=== PATIENT | male | born 1965 ===

== ENCOUNTER → 2018-01-11 | Outpatient (CLI) | payer OTHER ==
[~2018-01-11] MED LIST: ATOR-22 PO; ATOR-26 PO; BACL10TA PO; CEPH500C2 PO; FRS/40 PO; IBUP-1050 PO; IBUP-1450 PO; IMIP1INJ5 IV; LDDP5 TD; LEVO1TAB35 IV; LVNIS40 SQ; METH10TA2 PO; NORT50CA PO; NRN300 PO; PIPE2SOL IV; POTA8CAP6 PO; ROPI0.25 PO; SULF800T23 PO; VANC500I IV
--- NOTE | 2018-01-20 10:22 | CODING QUERY NO DIAGNOSIS ---
TREATMENT RENDERED WITHOUT A DIAGNOSIS Dr. Perez, To promote full compliance with coding requirements relating to patient care, physician participation is requested in all cases of wedding planning internship uncertainty. Please assist us with providing a diagnosis/symptom for the test(s) below: A diagnosis/symptom was not documented on your Order. A valid diagnosis/symptom is required to bill all insurances. Please remember that we are unable to code a diagnosis of rule out, probable, possible, questionable, or suspected. Tests that require a diagnosis: * ID, CULTURE ISOLATE X9 DIAGNOSIS: * M.I.C. SENSITIVITY X7 DIAGNOSIS: * CULTURE, BACTERIAL, ANY SOURCE X2 DIAGNOSIS: * CULTURE, BACT., DEF; ANY SOURC X2 DIAGNOSIS: DATE OF SERVICE: 01/11/18 PLEASE PRINT FIRST AND LAST NAME OF PHYSICIAN FOR OUR REGISTRY Provider Signature: Date: Thank you Reese [facility] Information Management Once completed, please kindly fax back to [phone] For questions please call [phone]
== END | disposition home or self-care (01) ==
LOC: C.LABSPEC 17:15
PROVIDERS: ATTEND Internal Medicine Hematology
DX: Z01.89 Encounter for other specified special examinations (principal)

== ENCOUNTER → 2018-01-25 | Outpatient (CLI) | payer OTHER | END | disposition home or self-care (01) | LOC: C.LABSPEC 14:11 | PROVIDERS: ATTEND Internal Medicine Hematology | DX: S81.801A Unspecified open wound, right lower leg, initial encounter (principal); X58.XXXA Exposure to other specified factors, initial encounter ==

== ENCOUNTER 2018-01-29 13:09 | Inpatient (IN) | payer OTHER ==
[~2018-01-29] VITALS: Ht 185.4 cm; Wt 139.2 kg
[~2018-01-29 13:09] MED LIST changes: -ATOR-26 PO; -IBUP-1050 PO; -IMIP1INJ5 IV; -LDDP5 TD; -LVNIS40 SQ; -NRN300 PO; -PIPE2SOL IV; -SULF800T23 PO; -VANC500I IV
[2018-01-29] MEDS ORDERED: HYDROmorphone INJ 1 MG/ML SYR IV STA ×2 (13:41→15:36)
[2018-01-29] MEDS ORDERED: ONDANSETRON INJ 2 MG/ML 2 ML VIAL IV STA (13:41)
[2018-01-29] MEDS ORDERED: IMIP1INJ5 IV (13:53)
[2018-01-29] MEDS ORDERED: SULF800T23 PO (13:53)
[2018-01-29 14:27] LABS: BASO % 0.2 %; BASO ABS # 0.01 K/uL (0-0.2); EOS % 3.9 %; EOS ABS # 0.24 K/uL (0-0.5); HEMATOCRIT 38.7 % (42-52); HEMOGLOBIN 13.7 g/dL (14.0-18.0); IG# 0.02 K/uL (0.00-0.02); LYMPH % 19.1 %; LYMPH ABS # 1.19 K/uL (1.2-3.4); MEAN CELL VOLUME 95.1 fL (80-100); MEAN CORPUSCULAR HEMOGLOBIN 33.7 pg (25-34); MEAN CORPUSCULAR HGB CONC 35.4 g/dl (32-36); MEAN PLATELET VOLUME 9.7 fL (7.4-10.4); MONO ABS # 0.62 K/uL (0.11-0.59); NEUT % 66.5 %; NEUT ABS # 4.15 K/uL (1.4-6.5); PLATELET COUNT 152 K/uL (130-400); RED CELL DISTRIBUTION WIDTH CV 13.6 % (11.5-14.5); WHITE BLOOD COUNT 6.23 K/uL (4.8-10.8)
[2018-01-29 14:45] LABS: ALBUMIN 3.4 gm/dl (3.4-5.0); CALCIUM 8.3 mg/dl (8.5-10.1); CREATININE 0.78 mg/dl (0.60-1.40); POTASSIUM 3.8 mmol/L (3.5-5.1)
[2018-01-29 14:47] LABS: TOTAL PROTEIN 7.5 gm/dl (6.4-8.2)
--- NOTE | 2018-01-29 14:58 | DIAGNOSTIC IMAGING REPORT ---
L VENOUS DOPP LOWER EXT UNILAT CLINICAL HISTORY: 52 years-old Male presenting with eval for dvt. TECHNIQUE: Real-time grayscale and color and spectral Doppler ultrasound imaging of the veins of the left lower extremity was performed. Compression and augmentation were also utilized. COMPARISON: None. FINDINGS: Left: Common femoral vein: Patent. Greater saphenous vein: Patent. Deep femoral vein: Patent. Femoral vein: Patent. Popliteal vein: Patent. Calf veins: Limited visualization secondary to subcutaneous edema. Other: None. IMPRESSION: 1. No evidence of deep venous thrombosis. 2. Subcutaneous edema in the lower leg. Electronically signed by: Hector Mora M.D. 01/29/2018 2:57 PM Dictated Date/Time: 01/29/2018 2:57 PM
--- NOTE | 2018-01-29 14:58 | DIAGNOSTIC IMAGING REPORT ---
L ART DOP DUPLEX LWR EXT UNI CLINICAL HISTORY: 52 years-old Male presenting with eval for arterial occlusion. TECHNIQUE: Real-time grayscale and color and spectral Doppler ultrasound imaging of the left lower extremity arteries was performed. Measurements calculated based on NASCET criteria. COMPARISON: None. FINDINGS: Right: Common femoral artery: Patent. Peak systolic velocity 217 cm/s. Superficial femoral artery: Patent. Peak systolic velocity 226 cm/s. Deep femoral artery: Patent. Peak systolic velocity 218 cm/s. Popliteal artery: Patent. Peak systolic velocity 163 cm/s. Anterior tibial artery: Patent. Peak systolic velocity 45 cm/s. Posterior tibial artery: Patent. Peak systolic velocity 51 cm/s. Peroneal artery: Patent. Peak systolic velocity 41 cm/s. Dorsalis pedis: Patent. Peak systolic velocity 31 cm/s. IMPRESSION: 1. No hemodynamically significant stenosis. Electronically signed by: Hector Mora M.D. 01/29/2018 2:56 PM Dictated Date/Time: 01/29/2018 2:55 PM
[2018-01-29] MEDS ORDERED: PIPERACILLIN/TAZOBACTAM 4.5 GM/100ML D5W IV ONE (15:45)
[2018-01-29 15:52] LABS: PTT PATIENT 30.8 SECONDS (21.0-31.0)
[2018-01-29] MEDS ORDERED: HYDROmorphone INJ 0.5 MG/0.5 ML SYR ONE (15:52)
[2018-01-29] MEDS ORDERED: ONDANSETRON INJ 2 MG/ML 2 ML VIAL IV PRN (16:15)
[2018-01-29] MEDS ORDERED: ACETAMINOPHEN 325 MG TAB PO PRN (16:15)
[2018-01-29] MEDS ORDERED: OPTIRAY 320 IV PRN (16:15)
[2018-01-29] MEDS ORDERED: VANCOMYCIN IV 2,750 MG in SODIUM CHLORIDE 0.9% 500ML 500 ML IV ONE (16:15)
[2018-01-29] MEDS ORDERED: TRAMADOL HCL 50 MG TAB PO PRN (16:30)
--- NOTE | 2018-01-29 17:26 | EMERGENCY ROOM VISIT NOTE ---
History Report prepared by Zack: Magdalena Lord Under the Supervision of: Dr. Valdemar Beard M.D. First contact with patient: 13:21 Stated Complaint: EDEMA History of Present Illness The patient is a 52 year old male who presents to the Emergency Room with complaints of constant left foot numbness occurring this morning. When he had his bandages changed this morning he noticed his toes were blue. He describes his numbness as a "tingling" sensation. The patient reports leg pain and back pain which is normal for him, however, he states this pain has worsened over the past couple days. He also has pain to his left hip. The patient reports worsening redness and swelling to the tops of his feel since his visit to the wound clinic on January 26. The patient states he started to have left hip pain beginning a couple days ago. The patient has a history of a spinal abscess 3 years ago. Source of History: patient Onset: this morning Position: foot (left) Quality: numbness Timing: constant Modifying Factors (Relieving): other Associated Symptoms: + back pain, + numbness Review of Systems See HPI for pertinent positives & negatives. A total of 10 systems reviewed and were otherwise negative. Past Medical & Surgical Medical Problems: (1) Chronic back pain (2) Dyslipidemia (3) Lymphedema (4) Spinal abscess Surgical Problems: (1) History of back surgery Family History Patient reports no known family medical history. Social History Smoking Status: Former Smoker Drug Use: cocaine Marital Status: single Occupation Status: other Current/Historical Medications Scheduled Atorvastatin (Lipitor), 1 TAB PO DAILY Baclofen (Lioresal), 20 MG PO TID Cephalexin Monohydrate (Keflex), 500 MG PO BID Furosemide (Lasix), 40 MG PO BID Imipenem-Cilastatin (Primaxin Iv), 1 GM IV Q8 Methadone Hcl (Dolophine), 10 MG PO DAILY Sulfa/Trimethoprim (Bactrim Ds 800MG/160MG), 1 TAB PO BID Allergies Coded Allergies: No Known Allergies (Unverified , 01/29/18) Physical Exam Vital Signs Date Time Temp Pulse Resp B/P (MAP) Pulse Ox O2 Delivery O2 Flow Rate FiO2 01/29/18 17:00 102 18 99 01/29/18 15:11 99 20 127/74 99 Room Air 01/29/18 13:15 36.9 95 18 129/59 99 Room Air Physical Exam Constitutional: Vital signs reviewed. Eyes: Pupils are equal round reactive to light. Conjunctiva are noninjected. ENT: Pharynx is clear without erythema or exudate. Mucous membranes are moist. Neck supple without meningeal signs. Respiratory: Clear to auscultation bilaterally. Breath sounds are equal bilaterally. Cardiovascular: Regular rate and rhythm. No rubs or gallops. GI: Soft, nondistended and nontender. Bowel sounds are present. Musculoskeletal: Bilateral lymph edema with diffuse erythema and warmth to the right lower leg below the knee. Normal cap refill in right. Left leg with diffuse erythema below knee including dorsum of the foot which is cold to touch. Delayed cap refill of the dorsum of the foot only, normal cap refill in the toes. Increased warmth to the left lower leg otherwise. No left hip tenderness or swelling. Integumentary: No cyanosis. Neurological: The patient is awake and alert. No focal deficits. Psychiatric: Normal affect. Medical Decision & Procedures ER Provider Diagnostic Interpretation: Radiology results as stated below per my review and the radiologist's interpretation: L VENOUS DOPP LOWER EXT UNILAT FINDINGS: Left: Common femoral vein: Patent. Greater saphenous vein: Patent. Deep femoral vein: Patent. Femoral vein: Patent. Popliteal vein: Patent. Calf veins: Limited visualization secondary to subcutaneous edema. Other: None. IMPRESSION: 1. No evidence of deep venous thrombosis. 2. Subcutaneous edema in the lower leg. Electronically signed by: Hector Mora M.D. L ART DOP DUPLEX LWR EXT UNI FINDINGS: Right: Common femoral artery: Patent. Peak systolic velocity 217 cm/s. Superficial femoral artery: Patent. Peak systolic velocity 226 cm/s. Deep femoral artery: Patent. Peak systolic velocity 218 cm/s. Popliteal artery: Patent. Peak systolic velocity 163 cm/s. Anterior tibial artery: Patent. Peak systolic velocity 45 cm/s. Posterior tibial artery: Patent. Peak systolic velocity 51 cm/s. Peroneal artery: Patent. Peak systolic velocity 41 cm/s. Dorsalis pedis: Patent. Peak systolic velocity 31 cm/s. IMPRESSION: 1. No hemodynamically significant stenosis. Electronically signed by: Hector Mora M.D. Laboratory Results 01/29/18 14:17 Red Blood Count 4.07, Mean Corpuscular Volume 95.1, Mean Corpuscular Hemoglobin 33.7, Mean Corpuscular Hemoglobin Concent 35.4, Mean Platelet Volume 9.7, Neutrophils (%) (Auto) 66.5, Lymphocytes (%) (Auto) 19.1, Monocytes (%) (Auto) 10.0, Eosinophils (%) (Auto) 3.9, Basophils (%) (Auto) 0.2, Neutrophils # (Auto ) 4.15, Lymphocytes # (Auto) 1.19, Monocytes # (Auto) 0.62, Eosinophils # (Auto ) 0.24, Basophils # (Auto) 0.01 01/29/18 14:17 Test 01/29/18 14:17 01/29/18 15:27 White Blood Count 6.23 K/uL (4.8-10.8) Red Blood Count 4.07 M/uL (4.7-6.1) Hemoglobin 13.7 g/dL (14.0-18.0) Hematocrit 38.7 % (42-52) Mean Corpuscular Volume 95.1 fL (80-100) Mean Corpuscular Hemoglobin 33.7 pg (25-34) Mean Corpuscular Hemoglobin Concent 35.4 g/dl (32-36) Platelet Count 152 K/uL (130-400) Mean Platelet Volume 9.7 fL (7.4-10.4) Neutrophils (%) (Auto) 66.5 % Lymphocytes (%) (Auto) 19.1 % Monocytes (%) (Auto) 10.0 % Eosinophils (%) (Auto) 3.9 % Basophils (%) (Auto) 0.2 % Neutrophils # (Auto) 4.15 K/uL (1.4-6.5) Lymphocytes # (Auto) 1.19 K/uL (1.2-3.4) Monocytes # (Auto) 0.62 K/uL (0.11-0.59) Eosinophils # (Auto) 0.24 K/uL (0-0.5) Basophils # (Auto) 0.01 K/uL (0-0.2) RDW Standard Deviation 47.0 fL (36.4-46.3) RDW Coefficient of Variation 13.6 % (11.5-14.5) Immature Granulocyte % (Auto) 0.3 % Immature Granulocyte # (Auto) 0.02 K/uL (0.00-0.02) Anion Gap 6.0 mmol/L (3-11) Est Creatinine Clear Calc Drug Dose 162.4 ml/min Estimated GFR () 120.3 Estimated GFR (Non- 103.8 BUN/Creatinine Ratio 16.9 (10-20) Calcium Level 8.3 mg/dl (8.5-10.1) Total Bilirubin 0.7 mg/dl (0.2-1) Direct Bilirubin 0.3 mg/dl (0-0.2) Aspartate Amino Transf (AST/SGOT) 42 U/L (15-37) Alanine Aminotransferase (ALT/SGPT) 58 U/L (12-78) Alkaline Phosphatase 108 U/L (45-117) Total Protein 7.5 gm/dl (6.4-8.2) Albumin 3.4 gm/dl (3.4-5.0) Prothrombin Time 10.9 SECONDS (9.0-12.0) Prothromb Time International Ratio 1.0 (0.9-1.1) Activated Partial Thromboplast Time 30.8 SECONDS (21.0-31.0) Partial Thromboplastin Ratio 1.2 Laboratory results as reviewed by me. Medications Administered Medications (Trade) Dose Ordered Sig/Neo Route Start Time Stop Time Status Last Admin Dose Admin Hydromorphone HCl (Dilaudid Inj) 1 mg NOW STAT IV 01/29/18 13:41 01/29/18 13:44 DC 01/29/18 13:52 1 MG Ondansetron HCl (Zofran Inj) 4 mg NOW STAT IV 01/29/18 13:41 01/29/18 13:44 DC 01/29/18 13:52 4 MG Piperacillin Sod/ Tazobactam Sod (Zosyn Iv) 4.5 gm NOW ONCE IV 01/29/18 15:45 01/29/18 15:46 DC 01/29/18 16:00 4.5 GM Vancomycin HCl 2750 mg/Sodium Chloride 555 ml @ 200 mls/hr TODAY@1615 ONCE IV 01/29/18 16:15 01/29/18 19:01 01/29/18 16:47 200 MLS/HR Hydromorphone HCl (Dilaudid Inj) 0.5 mg STK-MED ONCE .ROUTE 01/29/18 15:52 01/29/18 15:53 DC 01/29/18 15:59 0.5 MG ED Course 1329: The patient was evaluated in room C5. A complete history and physical exam was performed. 1341: Ordered Zofran Inj 4 mg IV, Dilaudid Inj 1 mg IV. 1358: I discussed the patient's history with the diesel automotive technician for a STAT Doppler. 1514: I discussed the patient's test results with him. 1519: I discussed the patient's case with Jessy-Nurse Credit Products Officer. She reports the patient was stopped on Levaquin put on ceftriaxone briefly and then put on primaxin after his cultures resulted. She said the patient is not compliant and she concerned for drug seeking behavior. 1527: I updated the patient on the treatment plan. He is requesting more pain medications. 1533: I spoke with Nakia BAH of [facility]. We discussed the patient and his results. The patient will be further evaluated by her. 1536: Ordered Dilaudid Inj 0.5 mg IV. 1545: Ordered Zosyn IV 4.5 gm IV. Medical Decision This is a 52-year-old male who presents with discoloration and pain to his left leg. Differential diagnosis includes phlegmasia cerulea dolens, phlegmasia alba dolens, DVT, arterial occlusion, cellulitis, abscess. I did perform a limited focused review of portions of the patient's old chart on the electronic medical record. The patient was seen January 26 at the wound care clinic for pressure ulcers on the backs of his feet with lymph edema and secondary cellulitis. The patient is on Levaquin and maintenance Keflex. His wound culture showed Pseudomonas and MRSA. I did evaluate the patient as noted above. The patient is presenting with discoloration of his left foot with decreased temperature to the dorsum of the foot only. He has great cap refill to the toes but slow capillary fill to the dorsum of the foot. He has obvious cellulitis to both legs. IV access was established. I did treat the patient with IV Dilaudid and Zofran IV. I did order and review the patient's blood work as noted in the electronic medical record. His white blood cell count is not elevated. I did order a stat arterial and venous Doppler of the left leg. I did review the images myself as well as the radiology report as described above. There is no evidence of arterial occlusion or DVT. I did discuss the test results with the patient. He did request more pain meds. I did give him an additional dose of IV Dilaudid. I did attempt to call the physician at [facility]. He was not available and so I spoke to the nurse supervisor canvas products. She stated that the reason they sent him over was that he had coldness and cyanosis to the left foot. She does state that he is somewhat noncompliant with treatment regimens and has a history of drug-seeking behavior. He was apparently on Levaquin but this was DC 'd and the patient was then placed on ceftriaxone which was then switched to Primaxin after review of the cultures by the physician. She does state that he was not previously complaining of hip pain. I did recommend hospitalization. I did not feel the Primaxin would cover his MRSA. He was started on Zosyn and vancomycin IV here. I did speak to the hospitalist and case therapist. I did recommend further testing such as MRI of the hip and back to evaluate for possible osteomyelitis or abscess. The patient does have some difficulty laying down and still so he may require some sedation or additional analgesia for the MRI. Medication Reconcilliation Current Medication List: was personally reviewed by me Blood Pressure Screening Patient's blood pressure: Elevated blood pressure Blood pressure disposition: Elevated BP felt to be situational Consults Time Called: 1530 Consulting Physician: Nakia Bee Returned Call: 1533 I spoke with Nakia BAH of [facility]. We discussed the patient and his results. The patient will be further evaluated by her. Impression Primary Impression: Bilateral lower leg cellulitis Additional Impressions: Failure of outpatient treatment MRSA (methicillin resistant staph aureus) culture positive Left hip pain Low back pain Scribe Attestation The scribe's documentation has been prepared under my direct and personally reviewed by me in its entirety. I confirm that the note above accurately reflects all work, treatment, procedures, and medical decision making performed by me. Departure Information Dispostion Being Evaluated By Hospitalist [facility]errals [facility] ([facility] Problem Qualifiers Additional Impressions: Low back pain Chronicity: chronic Back pain laterality: midline Sciatica presence: with sciatica Sciatica laterality: sciatica of left side Qualified Codes: M54.42 - Lumbago with sciatica, left side; G89.29 - Other chronic pain
--- NOTE | 2018-01-29 17:30 | History and Physical ---
History & Physical Date & Time of Service: January 29, 2018 ~ 15:30 Chief Complaint: Lower extremity edema and wounds, increased back pain Primary Care Physician: Austen ESPOSITO History of Present Illness 52-year-old male who presents the ED with lower extremity edema and wounds and increasing back pain. Patient is currently incarcerated at [facility]. He reports that approximately 5 years ago he had fallen in the shower and fractured his spine. He was incidentally found to have a spinal abscess. He subsequently underwent surgery for repair and treatment of the abscess. He has since required 5 back surgeries. Patient also reports infections to the right calf and left ankle that required I&D. Patient reports he is mostly wheelchair- bound secondary to his back surgeries. Over the past couple months, patient has noted increased edema to his bilateral lower extremities. He developed blisters which have since opened. He was evaluated at the wound center. Culture was obtained that grew Aeromonas hydrophilia, Pseudomonas, MRSA, Alcaligenes, and corynebacterium. Patient has been on chronic suppressive therapy with Keflex for his history of spinal abscess. He initially was placed on IV Levaquin. He recently was placed on IV Primaxin and oral Bactrim. Patient reports no improvement in his lower extremity wounds, erythema, or edema. He has had increasing back pain with radiation into the left hip with increasing leg spasms. He denies fever and chills. No chest pain or shortness of breath. He denies lightheadedness, dizziness, syncope, or diaphoresis. He has had nausea. No abdominal pain, vomiting, or diarrhea. No bowel or bladder incontinence. He denies urinary symptoms. In the ED, patient is afebrile, no leukocytosis. Patient was given 2 doses of IV Dilaudid, IV Zofran, IV Zosyn, and IV vancomycin. Past Medical/Surgical History Medical Problems: (1) Chronic back pain Status: Chronic (2) Dyslipidemia Status: Chronic (3) Lymphedema Status: Chronic (4) Spinal abscess Status: Resolved Surgical Problems: (1) History of back surgery Permanent Comment: x 5 Status: Chronic Family History FH: kidney cancer MOTHER Social History Smoking Status: Former Smoker Alcohol Use: Former heavy use Drug Use: cocaine (Former) Occupational Status: other (Incarcerated, [facility]) Allergies Coded Allergies: No Known Allergies (Unverified , 01/29/18) Home Medications Scheduled Atorvastatin (Lipitor), 1 TAB PO DAILY Baclofen (Lioresal), 20 MG PO TID Cephalexin Monohydrate (Keflex), 500 MG PO BID Furosemide (Lasix), 40 MG PO BID Imipenem-Cilastatin (Primaxin Iv), 1 GM IV Q8 Methadone Hcl (Dolophine), 10 MG PO DAILY Sulfa/Trimethoprim (Bactrim Ds 800MG/160MG), 1 TAB PO BID Review of Systems ROS per HPI, all other systems reviewed and negative Physical Exam Vital Signs Date Time Temp Pulse Resp B/P (MAP) Pulse Ox O2 Delivery O2 Flow Rate FiO2 01/29/18 15:11 99 20 127/74 99 Room Air 01/29/18 13:15 36.9 95 18 129/59 99 Room Air General Appearance: WD/WN, + mild distress (Appears to be in pain) Head: normocephalic, atraumatic Eyes: normal inspection, EOMI, sclerae normal ENT: hearing grossly normal, + pertinent finding (Mucous members moist) Neck: supple, no JVD, trachea midline Respiratory/Chest: lungs clear, normal breath sounds, no respiratory distress Cardiovascular: regular rate, rhythm, no edema, normal peripheral pulses Abdomen/GI: normal bowel sounds, non tender, soft, no organomegaly Extremities/Musculoskelatal: normal capillary refill, + calf tenderness, + swelling (BL LE) Neurologic/Psych: no motor/sensory deficits, alert, normal mood/affect, oriented x 3 Skin: + pertinent finding (Bilateral lower extremities edematous, erythematous , and warm to touch; open ulcers covering dorsal aspects of both feet, serous drainage noted; purpleish discoloration noted to the left toes) Diagnostics Laboratory Results Results Past 24 Hours Test 01/29/18 14:17 01/29/18 15:27 Range/Units White Blood Count 6.23 4.8-10.8 K/uL Red Blood Count 4.07 4.7-6.1 M/uL Hemoglobin 13.7 14.0-18.0 g/dL Hematocrit 38.7 42-52 % Mean Corpuscular Volume 95.1 80-100 fL Mean Corpuscular Hemoglobin 33.7 25-34 pg Mean Corpuscular Hemoglobin Concent 35.4 32-36 g/dl Platelet Count 152 130-400 K/uL Mean Platelet Volume 9.7 7.4-10.4 fL Neutrophils (%) (Auto) 66.5 % Lymphocytes (%) (Auto) 19.1 % Monocytes (%) (Auto) 10.0 % Eosinophils (%) (Auto) 3.9 % Basophils (%) (Auto) 0.2 % Neutrophils # (Auto) 4.15 1.4-6.5 K/uL Lymphocytes # (Auto) 1.19 1.2-3.4 K/uL Monocytes # (Auto) 0.62 0.11-0.59 K/uL Eosinophils # (Auto) 0.24 0-0.5 K/uL Basophils # (Auto) 0.01 0-0.2 K/uL RDW Standard Deviation 47.0 36.4-46.3 fL RDW Coefficient of Variation 13.6 11.5-14.5 % Immature Granulocyte % (Auto) 0.3 % Immature Granulocyte # (Auto) 0.02 0.00-0.02 K/uL Sodium Level 137 136-145 mmol/L Potassium Level 3.8 3.5-5.1 mmol/L Chloride Level 103 98-107 mmol/L Carbon Dioxide Level 28 21-32 mmol/L Anion Gap 6.0 3-11 mmol/L Blood Urea Nitrogen 13 7-18 mg/dl Creatinine 0.78 0.60-1.40 mg/dl Est Creatinine Clear Calc Drug Dose 162.4 ml/min Estimated GFR () 120.3 Estimated GFR (Non- 103.8 BUN/Creatinine Ratio 16.9 10-20 Random Glucose 105 70-99 mg/dl Calcium Level 8.3 8.5-10.1 mg/dl Total Bilirubin 0.7 0.2-1 mg/dl Direct Bilirubin 0.3 0-0.2 mg/dl Aspartate Amino Transf (AST/SGOT) 42 15-37 U/L Alanine Aminotransferase (ALT/SGPT) 58 12-78 U/L Alkaline Phosphatase 108 45-117 U/L Total Protein 7.5 6.4-8.2 gm/dl Albumin 3.4 3.4-5.0 gm/dl Prothrombin Time 10.9 9.0-12.0 SECONDS Prothromb Time International Ratio 1.0 0.9-1.1 Activated Partial Thromboplast Time 30.8 21.0-31.0 SECONDS Partial Thromboplastin Ratio 1.2 Microbiology Results 01/29/18 Blood Culture, Received Pending 01/29/18 Blood Culture, Received Pending Diagnostic Radiology LLE ARTERIAL DOPPLER IMPRESSION: 1. No hemodynamically significant stenosis. LLE VENOUS DOPPLER IMPRESSION: 1. No evidence of deep venous thrombosis. 2. Subcutaneous edema in the lower leg. Impression Assessment and Plan POLYMICROBIAL BILATERAL LOWER EXTREMITY CELLULITIS LYMPHEDEMA -admit to [facility] -Patient presenting with increasing lower extremity edema and erythema; was recently evaluated at the wound center, culture was obtained which grew Aeromonas hydrophilia, Pseudomonas, MRSA, Alcaligenes, and corynebacterium; patient was placed on IV imipenem and p.o. Bactrim; patient chronically on suppression therapy with Keflex for history of spinal abscess -Venous and arterial Dopplers obtained of the LLE are negative; will check venous and arterial Dopplers of the RLE -S/P Vanco and Zosyn in the ED; will continue with per prior culture sensitivities -Follow blood cultures -No signs of sepsis -ID and wound care consults -Continue Lasix for lymphedema CHRONIC BACK PAIN -Patient with history of spinal abscess and back surgeries 5 -Due to patient's reports of increased back pain, will obtain CT of the lumbar spine (patient unable to tolerate MRI due to back pain at this time) -Will increase patient's scheduled baclofen due to increased spasms, provide as needed tramadol and IV Toradol -Continue Requip and methadone -Pain management consult DYSLIPIDEMIA -Continue statin DVT PROPHYLAXIS -SQ Lovenox DISPOSITION -In my clinical judgment this beneficiary meets acute admission criteria, established by [facility], that includes being hospitalized through two midnights. ATTENDING ADDENDUM Patient seen and examined care coordinated with Nakia BAH This is a 52-year-old male prisoner presented with bilateral lower extremity chronic cellulitis/lymphedema/history of polymicrobial bacterial infection in the past No evidence of sepsis Patient was on IV imipenem started 2 days ago (has IV access on right upper arm )and p.o. Bactrim in longterm On chronic suppression therapy with p.o. Keflex Bilateral lower extremity Doppler shows no evidence of DVT Wound care consult CT of lumbar spine shows no evidence of abscess Patient started with empiric antibiotic with IV vancomycin and Zosyn Ordered for blood culture ID eval requested Nimo Vasquez MD Resuscitation Status VTE Prophylaxis Will order VTE Prophylaxis: Yes
[2018-01-29] MEDS ORDERED: VANCOMYCIN CONSULT ACTIVE PRN (17:42)
[2018-01-29] MEDS ORDERED: PIPERACILL/TAZOBAC CONSULT ACTIVE PRN (17:45)
[2018-01-29] MEDS: KETOROLAC TROMETHAMINE 30 MG/ML VIAL IV PRN (18:02)
--- NOTE | 2018-01-29 18:08 | DIAGNOSTIC IMAGING REPORT ---
LUMBAR SPINE WITH CT DOSE: 798.22 mGy.cm CLINICAL HISTORY: 52 years-old Male with back pain; r/o abscess. Acute back pain with concern for abscess TECHNIQUE: Multiple axial CT images of the lumbar spine were obtained following the intravenous administration of 95 mL Optiray 320 IV contrast. Coronal and sagittal reformats were generated from the axial data set and submitted for review. A dose lowering technique was utilized adhering to the principles of ALARA. COMPARISON: None. FINDINGS: No acute intra-abdominal or intrapelvic abnormality identified. No aortic aneurysm. Mildly prominent periaortic and left iliac chain lymph nodes measure up to 8 mm. Lymph nodes of the right iliac chain measure up to 1.2 cm in short axis nicely seen on image 298 series 3. Mild subcutaneous stranding of the subcutaneous tissues of the mid to lower lumbar spine appears to be within normal limits and is likely related to obesity. No enhancing fluid collection or epidural abscess identified. There is no acute fracture or subluxation identified. Posterior anya and screw fusion hardware is noted at T11 extending superiorly outside the [id number]. Mild multilevel endplate spurring with moderate multilevel facet arthrosis. Subtle ill-defined linear lucency of the left sacral ala best seen on image 49 series 200 may reflect an acute nondisplaced sacral insufficiency fracture. Bones appear mildly demineralized. There is a nonaggressive appearing sclerotic lesion involving the left aspect of the L4 vertebral body, 10 mm possibly reflecting a bone island. Shortened pedicles cause a slight mild central canal stenosis. T12-L1: No evidence of disc bulge or central canal stenosis is seen. The neural foramina appear patent bilaterally. L1-L2: Small posterior disc bulge with moderate facet arthrosis and ligamentum flavum thickening. Findings cause mild central canal and mild bilateral foraminal narrowing. L2-L3: Small posterior disc bulge with spondylitic spurring and moderate facet arthrosis with ligamentum flavum thickening. Mild central canal and moderate bilateral foraminal narrowing. L3-L4: Small posterior disc bulge with spondylitic spurring, moderate facet arthrosis and ligament of flavum thickening. Mild central canal and mild bilateral foraminal narrowing. L4-L5: Posterior spondylitic spurring with small superficial disc bulge, severe facet arthrosis and mild ligament flavum thickening. Mild central canal stenosis. Left foramen is patent. Mild right foraminal narrowing. L5-S1: Posterior spondylitic spurring with small posterior disc bulge, severe facet arthrosis and ligament of flavum thickening. Flattening of the ventral thecal sac without significant central canal stenosis. Left foramen is patent. Mild right foraminal narrowing. IMPRESSION: 1. Linear ill-defined lucency of the left sacral ala may reflect an acute nondisplaced sacral insufficiency fracture. Correlate with point tenderness and patient history. 2. No abnormal enhancement or focal fluid collections to suggest abscess. 3. Posterior fusion hardware of the lower thoracic spine partially imaged. 4. Indeterminate mildly prominent periaortic and mildly enlarged right iliac chain lymph nodes. The above report was generated using voice recognition software. It may contain grammatical, syntax or spelling errors. Electronically signed by: Man Schmitt M.D. 01/29/2018 6:06 PM Dictated Date/Time: 01/29/2018 5:47 PM
[2018-01-29 18:30] VITALS: BP 127/74; TEMP 36.9; O2SAT 99; Ht 185.4 cm; Wt 139.2 kg
[2018-01-29] MEDS ORDERED: TRAMADOL HCL 50 MG TAB PO ONE (19:48)
[2018-01-29] MEDS ORDERED: BACLOFEN TAB 20 MG TAB PO ONE (19:48)
--- NOTE | 2018-01-29 20:45 | Pharmacy Progress Note ---
Pharmacy Antibiotic Consult Date of Service: January 29, 2018. Pharmacy Dosing Scope Pharmacy is consulted to initiate Vanco/Zosyn IV dosing therapy, order appropriate labs and adjust drug dose/frequency. Subjective The patient is a 52 year old male admitted on January 29, 2018 at 16:06. Objective Height (Feet): 6 Height (Inches): 1.00 Weight (Kilograms): 139.200 Lab Results (24hrs): Test 01/29/18 14:17 01/29/18 15:27 White Blood Count 6.23 K/uL (4.8-10.8) Red Blood Count 4.07 M/uL (4.7-6.1) Hemoglobin 13.7 g/dL (14.0-18.0) Hematocrit 38.7 % (42-52) Mean Corpuscular Volume 95.1 fL (80-100) Mean Corpuscular Hemoglobin 33.7 pg (25-34) Mean Corpuscular Hemoglobin Concent 35.4 g/dl (32-36) Platelet Count 152 K/uL (130-400) Mean Platelet Volume 9.7 fL (7.4-10.4) Neutrophils (%) (Auto) 66.5 % Lymphocytes (%) (Auto) 19.1 % Monocytes (%) (Auto) 10.0 % Eosinophils (%) (Auto) 3.9 % Basophils (%) (Auto) 0.2 % Neutrophils # (Auto) 4.15 K/uL (1.4-6.5) Lymphocytes # (Auto) 1.19 K/uL (1.2-3.4) Monocytes # (Auto) 0.62 K/uL (0.11-0.59) Eosinophils # (Auto) 0.24 K/uL (0-0.5) Basophils # (Auto) 0.01 K/uL (0-0.2) RDW Standard Deviation 47.0 fL (36.4-46.3) RDW Coefficient of Variation 13.6 % (11.5-14.5) Immature Granulocyte % (Auto) 0.3 % Immature Granulocyte # (Auto) 0.02 K/uL (0.00-0.02) Sodium Level 137 mmol/L (136-145) Potassium Level 3.8 mmol/L (3.5-5.1) Chloride Level 103 mmol/L (98-107) Carbon Dioxide Level 28 mmol/L (21-32) Anion Gap 6.0 mmol/L (3-11) Blood Urea Nitrogen 13 mg/dl (7-18) Creatinine 0.78 mg/dl (0.60-1.40) Est Creatinine Clear Calc Drug Dose 162.4 ml/min Estimated GFR () 120.3 Estimated GFR (Non- 103.8 BUN/Creatinine Ratio 16.9 (10-20) Random Glucose 105 mg/dl (70-99) Calcium Level 8.3 mg/dl (8.5-10.1) Total Bilirubin 0.7 mg/dl (0.2-1) Direct Bilirubin 0.3 mg/dl (0-0.2) Aspartate Amino Transf (AST/SGOT) 42 U/L (15-37) Alanine Aminotransferase (ALT/SGPT) 58 U/L (12-78) Alkaline Phosphatase 108 U/L (45-117) Total Protein 7.5 gm/dl (6.4-8.2) Albumin 3.4 gm/dl (3.4-5.0) Prothrombin Time 10.9 SECONDS (9.0-12.0) Prothromb Time International Ratio 1.0 (0.9-1.1) Activated Partial Thromboplast Time 30.8 SECONDS (21.0-31.0) Partial Thromboplastin Ratio 1.2 Assessment & Plan Mr. Booth is being started on vancomycin/zosyn for polymicrobial cellulitis. Please see c/s's from 01/11/18. He has a h/o MRSA. Pt's habitus indicative of vanco accumulation. Vanco: 2750mg(20mg/kg) x1 given at 1647 * Then Vanco 2000mg (14mg/kg) q8 * Trough ordered prior to 3rd maintenance dose to ensure we are achieving therapeutic lvls * Goal trough for cellulitis: 12-15mcg/mL Zosyn: * Appropriate dose and frequency Pharmacy will continue to follow and will adjust dose/frequency as necessary. Thank you
[2018-01-29] MEDS ORDERED: BACLOFEN TAB 20 MG TAB PO SCH (21:00)
--- NOTE | 2018-01-29 21:08 | DIAGNOSTIC IMAGING REPORT ---
R VENOUS DOPP LOWER EXT UNILAT HISTORY: 52 years-old Male pain, edema acute right lower extremity pain and swelling COMPARISON: Duplex arterial study of same day TECHNIQUE: Multiple real-time sonographic images of the right lower extremity deep venous structures were obtained assessing grayscale appearance, color and spectral flow FINDINGS: Normal compressibility, phasicity, flow and augmentation of the right lower extremity deep venous structures. Moderate subcutaneous edema. IMPRESSION: No sonographic evidence of deep venous thrombosis. The above report was generated using voice recognition software. It may contain grammatical, syntax or spelling errors. Electronically signed by: Man Schmitt M.D. 01/29/2018 9:07 PM Dictated Date/Time: 01/29/2018 9:06 PM
--- NOTE | 2018-01-29 21:13 | DIAGNOSTIC IMAGING REPORT ---
R ART DOP DUPLEX LWR EXT UNI HISTORY: 52 years-old Male pain, edema acute pain and swelling of the right lower extremity COMPARISON: Duplex venous Doppler study same day TECHNIQUE: Multiple real-time sonographic images of the right lower extremity arterial structures were obtained assessing grayscale appearance, color and spectral flow FINDINGS: No ABIs were performed secondary to open wounds of the lower extremities. Patent common femoral artery with biphasic waveforms. Biphasic waveforms are also noted within the superficial femoral, popliteal and anterior tibial arteries. Popliteal waveforms are mildly blunted. Blunted monophasic waveforms are seen within the anterior tibial, posterior tibial, peroneal and dorsalis pedis arteries. Study is limited secondary to patient bandages of the right lower extremity. Systolic velocity 190 cm/s noted within the common femoral artery. Elevated peak systolic velocity of 227 cm/s noted within the superficial femoral artery. No arterial occlusion. Moderate subcutaneous edema. IMPRESSION: 1. Biphasic and monophasic waveforms throughout the right lower extremity suggest peripheral arterial disease without evidence of arterial occlusion. 2. Elevated peak systolic velocities within the superficial femoral artery suggest underlying luminal stenosis. 3. Moderate subcutaneous edema about the lower extremity. The above report was generated using voice recognition software. It may contain grammatical, syntax or spelling errors. Electronically signed by: Man Schmitt M.D. 01/29/2018 9:12 PM Dictated Date/Time: 01/29/2018 9:07 PM
[2018-01-29] MEDS: FUROSEMIDE 40 MG TAB PO SCH (21:20)
[2018-01-29] MEDS: ENOXAPARIN 40 MG/0.4 ML SYR SQ SCH (21:20)
[2018-01-29] MEDS: IBUPROFEN 200 MG TAB PO PRN (21:49)
[2018-01-29] MEDS: PIPERACILL/TAZOBAC IV 4.5 GM in NSS 100 ML IV SCH (22:26)
[2018-01-29] MEDS: VANCOMYCIN IV 2,000 MG in SODIUM CHLORIDE 0.9% 500ML 500 ML IV SCH (22:26)
[2018-01-29 23:05] VITALS: BP 128/74; PULSE 89; TEMP 37.3; O2SAT 92
[2018-01-30] MEDS: KETOROLAC TROMETHAMINE 30 MG/ML VIAL IV PRN ×4 (00:47→20:13)
[2018-01-30] MEDS: TRAMADOL HCL 50 MG TAB PO PRN ×5 (01:18→22:50)
[2018-01-30] MEDS: VANCOMYCIN IV 2,000 MG in SODIUM CHLORIDE 0.9% 500ML 500 ML IV SCH ×2 (06:12→13:56)
[2018-01-30] MEDS: PIPERACILL/TAZOBAC IV 4.5 GM in NSS 100 ML IV SCH ×3 (06:12→22:50)
[2018-01-30 06:19] LABS: HEMATOCRIT 36.7 % (42-52); HEMOGLOBIN 12.8 g/dL (14.0-18.0); MEAN CELL VOLUME 96.1 fL (80-100); MEAN CORPUSCULAR HEMOGLOBIN 33.5 pg (25-34); MEAN CORPUSCULAR HGB CONC 34.9 g/dl (32-36); MEAN PLATELET VOLUME 9.9 fL (7.4-10.4); PLATELET COUNT 127 K/uL (130-400); RED CELL DISTRIBUTION WIDTH CV 13.6 % (11.5-14.5); RED CELL DISTRIBUTION WIDTH SD 47.4 fL (36.4-46.3)
[2018-01-30 06:28] LABS: CALCIUM 8.3 mg/dl (8.5-10.1); CREATININE 0.89 mg/dl (0.60-1.40)
[2018-01-30 07:34] VITALS: BP 100/62; PULSE 74; TEMP 36.9; O2SAT 97
[2018-01-30] MEDS: BACLOFEN TAB 20 MG TAB PO SCH ×4 (07:56→20:16)
[2018-01-30] MEDS: ATORVASTATIN 20 MG TAB PO SCH (07:57)
[2018-01-30] MEDS: FUROSEMIDE 40 MG TAB PO SCH ×2 (07:58→16:38)
[2018-01-30] MEDS: IBUPROFEN 200 MG TAB PO PRN ×2 (08:00→13:49)
[2018-01-30] MEDS: ACETAMINOPHEN 325 MG TAB PO PRN ×2 (10:14→16:37)
[2018-01-30] MEDS: METHADONE HCL 10 MG TAB PO SCH (10:17)
[2018-01-30] MEDS ORDERED: VANCOMYCIN TROUGH ONE (13:30)
[2018-01-30 14:46] VITALS: BP 116/65; PULSE 76; TEMP 37; O2SAT 90
--- NOTE | 2018-01-30 15:15 | Pharmacy Progress Note ---
Pharmacy Abx Dose Progress Nt Date of Service January 30, 2018. Pharmacy Dosing Scope The patient is currently receiving the following antimicrobial agents per Pharmacy consult: Vancomycin 2,000 mg IV every 8 hours Zosyn 4.5g IV Q 8hrs Objective Height (Feet): 6 Height (Inches): 1.00 Weight (Kilograms): 139.200 Vital Signs (Past 12Hrs) Vital Signs Past 12 Hours Date Time Temp Pulse Resp B/P (MAP) Pulse Ox O2 Delivery O2 Flow Rate FiO2 01/30/18 14:46 37.0 76 18 116/65 (82) 90 01/30/18 07:34 36.9 74 18 100/62 (75) 97 Room Air Lab Results (24Hrs) Laboratory Tests (24 Hours) Test 01/30/18 06:01 White Blood Count 5.90 K/uL (4.8-10.8) Micro Results Date/Time Source Procedure Growth Status 01/29/18 15:27 Blood Blood Culture Pending Received 01/29/18 14:17 Blood Blood Culture Pending Received Risk Factors for Resistance * Resident in a custodial * History of infection with a multidrug-resistant organism: * Antimicrobial use within the last 90 days Assessment & Plan Assessment 52 year old male receiving IV Vanco + Zosyn for treatment of cellulitis Day # 2 of antimicrobial therapy Plan Vancomycin IV * Trough level of 22.2 mcg/mL is supratherapeutic. * Continue dose of Vancomycin 2,000mg but change interval from Q8hrs to Q12hrs for further drug excretion * Goal trough level for cellulitis : 15 to 20 mcg/mL in this specific case d/t likelihood of increased MARY of MDRO * Trough or random level ordered for: 02/01/18 @ 1400 * Likelihood of drug accumulation in obese patient/CKD. Piperacillin/tazobactam * Continue 4.5 g IV extended infusion every 8 hours for CrCl greater than 20 mL/ min AND BMI > 35 kg/m2 Pharmacy will continue to follow and will adjust dose/frequency as necessary. Thank you.
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
--- NOTE | 2018-01-30 17:33 | Progress Note ---
Internal Med Progress Note Date of Service: January 30, 2018. Provider Documentation: SUBJECTIVE: No acute distress. Patient reports of leg pain and back pain but able to speak with physician at ease. OBJECTIVE: General Appearance: no acute distress Head: normocephalic, atraumatic Eyes: normal inspection, EOMI ENT: hearing grossly normal Neck: supple, no JVD, trachea midline Respiratory/Chest: lungs clear, normal breath sounds, no respiratory distress Cardiovascular: regular rate, rhythm, no edema, normal peripheral pulses Abdomen/GI: normal bowel sounds, non tender, soft, no organomegaly Extremities/Musculoskelatal: Bilateral lower extremities edematous, erythematous, and warm to touch, prior surgical scar running down left leg, bilateral feet in dressing Neurologic/Psych: no motor/sensory deficits, alert, normal mood/affect, oriented x 3 ASSESSMENT & PLAN: POLYMICROBIAL BILATERAL LOWER EXTREMITY CELLULITIS / LYMPHEDEMA -lower extremity edema and erythema; was recently evaluated at the wound center , culture was obtained which grew Aeromonas hydrophilia, Pseudomonas, MRSA, Alcaligenes, and corynebacterium; patient was placed on IV imipenem and p.o. Bactrim; patient chronically on suppression therapy with Keflex for history of spinal abscess -Venous and arterial Dopplers of bilateral lower extremities are without clots or problems with blood flow -continue Vancomycin and Zosyn, Follow blood cultures -Infectious Disease consult following patient's case - wound care consult was requested -Continue Lasix for lymphedema CHRONIC BACK PAIN -Patient with history of spinal abscess and back surgeries 5 -Lumbar spine CT with Linear ill-defined lucency of the left sacral ala may reflect an acute nondisplaced sacral insufficiency fracture but his back pain reported to be higher than this area and no other findings of abscess or problems with hardware, also given active foot infection it is unlikely patient can qualify for a surgical intervention -baclofen, tramadol and IV Toradol, Advil, and methadone -Pain management consult was requested DYSLIPIDEMIA -Continue statin DVT PROPHYLAXIS -SQ Lovenox Vital Signs: Date Time Temp Pulse Resp B/P (MAP) Pulse Ox O2 Delivery O2 Flow Rate FiO2 01/30/18 16:00 Room Air 01/30/18 14:46 37.0 76 18 116/65 (82) 90 01/30/18 08:00 Room Air 01/30/18 07:34 36.9 74 18 100/62 (75) 97 Room Air 01/30/18 02:36 Room Air 01/29/18 23:05 37.3 89 20 128/74 (92) 92 Room Air 01/29/18 20:30 Room Air 01/29/18 18:30 36.9 18 127/74 99 Room Air Lab Results: Results Past 24 Hours Test 01/30/18 06:01 01/30/18 13:56 Range/Units White Blood Count 5.90 4.8-10.8 K/uL Red Blood Count 3.82 4.7-6.1 M/uL Hemoglobin 12.8 14.0-18.0 g/dL Hematocrit 36.7 42-52 % Mean Corpuscular Volume 96.1 80-100 fL Mean Corpuscular Hemoglobin 33.5 25-34 pg Mean Corpuscular Hemoglobin Concent 34.9 32-36 g/dl RDW Standard Deviation 47.4 36.4-46.3 fL RDW Coefficient of Variation 13.6 11.5-14.5 % Platelet Count 127 130-400 K/uL Mean Platelet Volume 9.9 7.4-10.4 fL Sodium Level 136 136-145 mmol/L Potassium Level 4.0 3.5-5.1 mmol/L Chloride Level 103 98-107 mmol/L Carbon Dioxide Level 29 21-32 mmol/L Anion Gap 4.0 3-11 mmol/L Blood Urea Nitrogen 14 7-18 mg/dl Creatinine 0.89 0.60-1.40 mg/dl Est Creatinine Clear Calc Drug Dose 142.3 ml/min Estimated GFR () 113.9 Estimated GFR (Non- 98.3 BUN/Creatinine Ratio 15.8 10-20 Random Glucose 96 70-99 mg/dl Calcium Level 8.3 8.5-10.1 mg/dl Vancomycin Level Trough 22.2 SEE COMMENT mcg/ml
[2018-01-30] MEDS: ENOXAPARIN 40 MG/0.4 ML SYR SQ SCH (20:17)
[2018-01-30 23:42] VITALS: BP 97/60; PULSE 81; TEMP 36.8; O2SAT 96
[2018-01-31] MEDS: VANCOMYCIN IV 2,000 MG in SODIUM CHLORIDE 0.9% 500ML 500 ML IV SCH ×2 (02:28→14:28)
[2018-01-31] MEDS: KETOROLAC TROMETHAMINE 30 MG/ML VIAL IV PRN ×4 (02:34→23:05)
[2018-01-31] MEDS: PIPERACILL/TAZOBAC IV 4.5 GM in NSS 100 ML IV SCH ×3 (05:42→22:27)
[2018-01-31] MEDS: TRAMADOL HCL 50 MG TAB PO PRN ×3 (05:42→18:35)
[2018-01-31 07:11] LABS: BASO % 0.2 %; BASO ABS # 0.01 K/uL (0-0.2); EOS % 4.8 %; EOS ABS # 0.24 K/uL (0-0.5); HEMATOCRIT 33.3 % (42-52); HEMOGLOBIN 11.8 g/dL (14.0-18.0); IG# 0.01 K/uL (0.00-0.02); LYMPH % 24.3 %; LYMPH ABS # 1.22 K/uL (1.2-3.4); MEAN CELL VOLUME 96.5 fL (80-100); MEAN CORPUSCULAR HEMOGLOBIN 34.2 pg (25-34); MEAN CORPUSCULAR HGB CONC 35.4 g/dl (32-36); MEAN PLATELET VOLUME 9.9 fL (7.4-10.4); MONO % 8.7 %; MONO ABS # 0.44 K/uL (0.11-0.59); NEUT % 61.8 %; NEUT ABS # 3.11 K/uL (1.4-6.5); PLATELET COUNT 126 K/uL (130-400); RED CELL DISTRIBUTION WIDTH CV 13.4 % (11.5-14.5); RED CELL DISTRIBUTION WIDTH SD 47.1 fL (36.4-46.3); WHITE BLOOD COUNT 5.03 K/uL (4.8-10.8)
[2018-01-31 07:18] VITALS: BP 98/61; PULSE 73; TEMP 36.9; O2SAT 95
[2018-01-31] MEDS: METHADONE HCL 10 MG TAB PO SCH (07:39)
[2018-01-31] MEDS: BACLOFEN TAB 20 MG TAB PO SCH ×4 (07:40→20:51)
[2018-01-31] MEDS: ATORVASTATIN 20 MG TAB PO SCH (07:41)
[2018-01-31] MEDS: FUROSEMIDE 40 MG TAB PO SCH ×2 (07:41→16:40)
[2018-01-31] MEDS: ACETAMINOPHEN 325 MG TAB PO PRN ×2 (07:46→18:35)
[2018-01-31 07:47] LABS: ALBUMIN 2.8 gm/dl (3.4-5.0); CREATININE 0.71 mg/dl (0.60-1.40); POTASSIUM 3.9 mmol/L (3.5-5.1)
[2018-01-31 07:52] LABS: TOTAL PROTEIN 6.1 gm/dl (6.4-8.2)
[2018-01-31] MEDS ORDERED: MAGNESIUM SULFATE 1GM / D5W 100 ML IV ONE (08:15)
[2018-01-31] MEDS: GABAPENTIN 100 MG CAP PO SCH ×3 (09:28→20:51)
[2018-01-31] MEDS: CYCLOBENZAPRINE HCL 5 MG TAB PO SCH ×3 (09:28→20:50)
[2018-01-31] MEDS: LIDODERM (LIDOCAINE) PATCH 5% TD SCH (09:29)
[2018-01-31] MEDS: IBUPROFEN 200 MG TAB PO PRN ×2 (11:51→16:37)
--- NOTE | 2018-01-31 12:41 | Progress Note ---
Internal Med Progress Note Date of Service: January 31, 2018. Provider Documentation: SUBJECTIVE: No acute distress. Patient reports still of leg pain and back, also left hip pain OBJECTIVE: General Appearance: no acute distress Head: normocephalic, atraumatic Eyes: normal inspection, EOMI ENT: hearing grossly normal Neck: supple, no JVD, trachea midline Respiratory/Chest: lungs clear, normal breath sounds, no respiratory distress Cardiovascular: regular rate, rhythm, no edema, normal peripheral pulses Abdomen/GI: normal bowel sounds, non tender, soft, no organomegaly Back: point tenderness of spine of middle back Extremities/Musculoskelatal: Bilateral lower extremities edematous, erythematous, and warm to touch, prior surgical scar running down left leg, bilateral feet in dressing, no specific point of tenderness identified on palpation of left hip Neurologic/Psych: alert, oriented ASSESSMENT & PLAN: POLYMICROBIAL BILATERAL LOWER EXTREMITY CELLULITIS / LYMPHEDEMA -lower extremity edema and erythema; was recently evaluated at the wound center , culture was obtained which grew Aeromonas hydrophilia, Pseudomonas, MRSA, Alcaligenes, and corynebacterium; patient was placed on IV imipenem and p.o. Bactrim; patient chronically on suppression therapy with Keflex for history of spinal abscess -Venous and arterial Dopplers of bilateral lower extremities are without clots or problems with blood flow -on the this admission, patient has been on Vancomycin and Zosyn, blood culture from 01/29/18 no growth to date, wound culture of legs have been ordered on to attempt identification of potential infective organism, continue Vancomycin and Zosyn for now despite negative blood culture given severeity of cellulitis and leg edema, appreciate further Infectious Disease recommendations on antibiotic management - wound care consult was requested -Continue Lasix for lymphedema CHRONIC BACK PAIN -Patient with history of spinal abscess and back surgeries 5 -Lumbar spine CT with Linear ill-defined lucency of the left sacral ala may reflect an acute nondisplaced sacral insufficiency fracture but his back pain reported to be higher than this area and no other findings of abscess or problems with hardware, also given active foot infection it is unlikely patient can qualify for a surgical intervention -have requested orthopedics to evaluate given patient complaint of left hip pain with the left sacral ala lucency on imaging -pain control medications adjusted today and now on multiple pain control modalities: Flexeril, baclofen, tramadol, ibuprofen, IV Toradol, gabapentin, Lidocaine patch to the back, patient is on methadone as outpatient and continue as inpatient -Pain management consult was requested for further pain medication adjustments Electrolytes/Renal function -Monitor for electrolyte deficiencies and renal function while on Lasix for the leg edema -Magnesium 1.9 on 01/31/18, give 1 gram of IV magnesium DYSLIPIDEMIA -Continue statin DVT PROPHYLAXIS -SQ Lovenox Vital Signs: Date Time Temp Pulse Resp B/P (MAP) Pulse Ox O2 Delivery O2 Flow Rate FiO2 01/31/18 07:18 36.9 73 18 98/61 (73) 95 Room Air 01/31/18 00:25 Room Air 01/30/18 23:42 36.8 81 20 97/60 (72) 96 Room Air 01/30/18 20:31 Room Air 01/30/18 16:00 Room Air 01/30/18 14:46 37.0 76 18 116/65 (82) 90 Lab Results: Results Past 24 Hours Test 01/30/18 13:56 01/31/18 06:42 Range/Units Vancomycin Level Trough 22.2 SEE COMMENT mcg/ml White Blood Count 5.03 4.8-10.8 K/uL Red Blood Count 3.45 4.7-6.1 M/uL Hemoglobin 11.8 14.0-18.0 g/dL Hematocrit 33.3 42-52 % Mean Corpuscular Volume 96.5 80-100 fL Mean Corpuscular Hemoglobin 34.2 25-34 pg Mean Corpuscular Hemoglobin Concent 35.4 32-36 g/dl Platelet Count 126 130-400 K/uL Mean Platelet Volume 9.9 7.4-10.4 fL Neutrophils (%) (Auto) 61.8 % Lymphocytes (%) (Auto) 24.3 % Monocytes (%) (Auto) 8.7 % Eosinophils (%) (Auto) 4.8 % Basophils (%) (Auto) 0.2 % Neutrophils # (Auto) 3.11 1.4-6.5 K/uL Lymphocytes # (Auto) 1.22 1.2-3.4 K/uL Monocytes # (Auto) 0.44 0.11-0.59 K/uL Eosinophils # (Auto) 0.24 0-0.5 K/uL Basophils # (Auto) 0.01 0-0.2 K/uL RDW Standard Deviation 47.1 36.4-46.3 fL RDW Coefficient of Variation 13.4 11.5-14.5 % Immature Granulocyte % (Auto) 0.2 % Immature Granulocyte # (Auto) 0.01 0.00-0.02 K/uL Sodium Level 138 136-145 mmol/L Potassium Level 3.9 3.5-5.1 mmol/L Chloride Level 102 98-107 mmol/L Carbon Dioxide Level 31 21-32 mmol/L Anion Gap 5.0 3-11 mmol/L Blood Urea Nitrogen 14 7-18 mg/dl Creatinine 0.71 0.60-1.40 mg/dl Est Creatinine Clear Calc Drug Dose 178.4 ml/min Estimated GFR () 125.0 Estimated GFR (Non- 107.9 BUN/Creatinine Ratio 19.7 10-20 Random Glucose 99 70-99 mg/dl Calcium Level 8.0 8.5-10.1 mg/dl Magnesium Level 1.9 1.8-2.4 mg/dl Total Bilirubin 0.9 0.2-1 mg/dl Aspartate Amino Transf (AST/SGOT) 43 15-37 U/L Alanine Aminotransferase (ALT/SGPT) 38 12-78 U/L Alkaline Phosphatase 77 45-117 U/L Total Protein 6.1 6.4-8.2 gm/dl Albumin 2.8 3.4-5.0 gm/dl Globulin 3.3 2.5-4.0 gm/dl Albumin/Globulin Ratio 0.9 0.9-2
--- NOTE | 2018-01-31 15:16 | ORTHOPEDIC CONSULTATION ---
DATE OF CONSULTATION: 01/31/2018 HISTORY OF PRESENT ILLNESS: This is a 52-year-old long-term inmate seen at the request of Dr. Smiley for left-sided back and hip pain. Apparently, the patient started to have back and hip pain since June and he was walking on a walker prior to that; however, then was nonambulatory, was in a wheelchair. The patient has a history of a fracture of his spine, which he sustained approximately in 2007 while incarcerated. Apparently, he fell in the shower. He had surgery initially in [facility] [place]. Subsequently, he had an infection of his spine with abscess formation. He has had multiple surgical treatments and washouts for this recurrent abscess in the spine and beginning in June of this year, started to have increased pelvis and left-sided hip pain. This worsened until the last several days knee and he was admitted to [facility] after he was transferred to [facility]. He was admitted to the hospitalist service and orthopedics was consulted. The patient has chronic problems with lower extremities, which were worse over the last 2-3 months of bilateral lower extremities. He developed blisters, which were cultured at the wound center. He is positive for aeromonas hydrophila, pseudomonas, MRSA, alcaligenes and corynebacterium. He has been on chronic suppressive therapy with Keflex for history of spinal abscess. He was placed on IV Levaquin and he was then changed to IV Primaxin and oral Bactrim. PAST MEDICAL HISTORY: Chronic back pain, dyslipidemia, lymphedema, chronic spinal abscess treated and resolved. PAST SURGICAL HISTORY: Back surgeries x5 including multiple washouts. ALLERGIES: No known drug allergies. MEDICATIONS: Please note the medications in the medical record. SOCIAL HISTORY: Former smoker, former heavy alcohol use, former cocaine user. He is currently incarcerated at [facility]. PHYSICAL EXAMINATION: GENERAL: This is a 52-year-old gentleman, who is lying supine in the hospital room bed. Two guards were present. He is alert and oriented x3. Speech clear and fluent. Affect is appropriate. He is obese, nonambulatory. He has significant edema in bilateral lower extremities with leg dressings. Lumbar spine is limited range of motion both active and passive. He is tender to palpation in the left posterolateral sacral ala. He has limited sensation in bilateral lower extremities. He is able to move his toes with some limitation. Dorsalis pedis and posterior pulses are palpable. Feet are warm. IMAGING DATA: Radiographs and CT scans reviewed demonstrating an insufficiency fracture of his left sacral ala without propagation. He has a stable lumbar hardware in place with pedicle screws and bars. No obvious abscess formation. LABORATORY DATA: Reviewed. IMPRESSION: 1. Left sacral ala, closed fracture 2. History of spinal abscess. History of spine surgery x5. Nonambulatory with chronic bilateral leg weakness with history of lower extremity paralysis for 8 months. RECOMMENDATIONS: 1. Closed treatment, left sacral ala fracture. 2. Conservative treatment with initiation of weightbearing with a walker and assist x1. Nonoperative care. Continue IV antibiotics as deemed appropriate for suppressive therapy. Thank you for the opportunity to consult in care of this patient.
--- NOTE | 2018-01-31 15:27 | DIAGNOSTIC IMAGING REPORT ---
L PELVIS/UNILATERAL HIP 2-3VIEWS HISTORY: 52 years-old Male CELLULITSI acute pain and swelling of the pelvis and left hip COMPARISON: Lumbar spine CT 01/29/2018 TECHNIQUE: AP view of the pelvis with 2 views of the bilateral hips FINDINGS: Chronic appearing subcapital fracture of the left femur is noted with approximately 4.0 cm superior and 3.0 cm lateral displacement of the femur in relation to the acetabulum corticated margins of the fracture noted. There appears to be pseudoarticulation of the left proximal femur in relation to the adjacent acetabulum. Chondrocalcinosis with moderate general changes of the pubic symphysis. There is a least partial bony fusion of the SI joints. No acute pelvic fracture identified. Moderate to severe right hip osteoarthritis without acute fracture or dislocation. The bones appear mildly demineralized. IMPRESSION: 1. Chronic subcapital fracture of the left proximal femur with superolateral displacement and pseudoarticulation of the femur with the adjacent iliac wing. 2. Moderate to severe right hip osteoarthritis without acute fracture or dislocation identified. 3. Partial bony fusion of the SI joints. The above report was generated using voice recognition software. It may contain grammatical, syntax or spelling errors. Electronically signed by: Man Schmitt M.D. 01/31/2018 3:26 PM Dictated Date/Time: 01/31/2018 3:22 PM
[2018-01-31 17:01] VITALS: BP 116/72; PULSE 76; TEMP 36.7; O2SAT 96
[2018-01-31] MEDS: ENOXAPARIN 40 MG/0.4 ML SYR SQ SCH (20:51)
[2018-01-31 23:20] VITALS: BP 100/61; PULSE 71; TEMP 37.2; O2SAT 96
[2018-02-01] MEDS: TRAMADOL HCL 50 MG TAB PO PRN ×2 (01:56→05:41)
[2018-02-01] MEDS: VANCOMYCIN IV 2,000 MG in SODIUM CHLORIDE 0.9% 500ML 500 ML IV SCH ×2 (01:56→17:01)
[2018-02-01] MEDS: IBUPROFEN 200 MG TAB PO PRN ×2 (03:10→10:13)
[2018-02-01] MEDS: PIPERACILL/TAZOBAC IV 4.5 GM in NSS 100 ML IV SCH ×3 (05:40→22:25)
[2018-02-01 07:12] VITALS: BP 96/60; PULSE 62; TEMP 36.7; O2SAT 97
[2018-02-01 07:43] LABS: CREATININE 0.67 mg/dl (0.60-1.40)
[2018-02-01 08:00] VITALS: O2SAT 97
--- NOTE | 2018-02-01 09:48 | Pain Management Consultation ---
Pain Management Consultation Date of Consultation February 01, 2018. Pain Location 1 - 2 - History 52-year-old currently incarcerated male with history of a fall in the shower 5 years ago and spinal fracture requiring multilevel fusion with subsequent abscess and 5 additional corrective surgeries. He is on chronic suppressive dose of Keflex to minimize risk of subsequent abscess. Over the last few months he has had increased bilateral lower extremity peripheral edema with blisters and now ulcerations currently working with wound center for assistance in healing. He reports that he has pain over his left hip girdle and was recently diagnosed with a left sacral fracture as well as chronic left femur subcapital fracture which was deemed nonoperative per orthopedics. He reports that he has 50% pain in his left hip girdle and 50% burning neuropathic pain in his bilateral lower extremities. He reports that he is utilized oxycodone in the past with minimal efficacy and has found benefit with methadone dosing. He reports that he has been on stable dosing of methadone at 10 mg p.o. daily for a period of time and admits that he thinks his last EKG for monitoring of QTc interval was in August 2017 though he is unsure. He reports that his pain is currently 5 out of 10 which is tolerable for him. He reports escalations of pain to 7 out of 10 during this hospitalization. He reports the pain is equivalent at rest and with activities. He denies any fever, chills, night sweats, radicular pain, bowel or bladder incontinence, motor weakness, falls. He reports that his pain is much improved since the start of this hospitalization. Past Medical/Surgical History (1) Left hip pain (2) MRSA (methicillin resistant staph aureus) culture positive (3) Bilateral lower leg cellulitis (4) Dyslipidemia (5) Chronic back pain (6) Spinal abscess (7) Lymphedema (8) History of back surgery Family History FH: kidney cancer MOTHER Social / Work History Alcohol Use: Former heavy use Drug Use: none Housing Status: other (Currently incarcerated at [facility]) Occupation: other (Incarcerated, [employer]) Allergies Coded Allergies: No Known Allergies (Unverified , 01/29/18) Medications Current Inpatient Medications Medications (Trade) Dose Ordered Sig/Neo Route Start Time Stop Time Status Last Admin Dose Admin Enoxaparin Sodium (Lovenox Inj) 40 mg HS SQ 01/29/18 21:00 02/28/18 20:59 01/31/18 20:51 40 MG Ondansetron HCl (Zofran Inj) 4 mg Q6H PRN IV 01/29/18 16:15 02/28/18 16:14 Miscellaneous Information (Consult) 1 ea UD PRN N/A 01/29/18 17:42 02/28/18 17:41 Ioversol (Optiray 320) 100 ml UD PRN IV 01/29/18 16:15 02/02/18 16:14 Ketorolac Tromethamine (Toradol Inj) 30 mg Q6H PRN IV 01/29/18 16:30 02/03/18 16:29 01/31/18 23:05 30 MG Atorvastatin Calcium (Lipitor Tab) 20 mg DAILY PO 01/30/18 09:00 03/01/18 08:59 01/31/18 07:41 20 MG Furosemide (Lasix Tab) 40 mg BID17 PO 01/29/18 21:00 02/28/18 20:59 01/31/18 16:40 40 MG Methadone HCl (Dolophine Tab) 10 mg DAILY PO 01/30/18 09:00 02/13/18 08:59 01/31/18 07:39 10 MG Miscellaneous Information (Consult) 1 ea UD PRN N/A 01/29/18 17:45 02/28/18 17:44 Piperacillin Sod/ Tazobactam Sod 4.5 gm/Sodium Chloride 120 ml @ 30 mls/hr Q8H IV 01/29/18 22:00 02/08/18 21:59 02/01/18 05:40 30 MLS/HR Ibuprofen (Advil Tab) 400 mg Q6H PRN PO 01/29/18 19:45 02/28/18 19:44 02/01/18 03:10 400 MG Acetaminophen (Tylenol Tab) 650 mg Q6H PRN PO 01/29/18 19:45 02/28/18 19:44 01/31/18 18:35 650 MG Baclofen (Lioresal Tab) 20 mg QID PO 01/30/18 09:00 02/28/18 20:59 01/31/18 20:51 20 MG Vancomycin HCl 2000 mg/Sodium Chloride 540 ml @ 200 mls/hr Q12H IV 01/31/18 02:00 02/08/18 01:59 02/01/18 01:56 200 MLS/HR Lidocaine (Lidoderm Patch 5%) 1 patch QAM TD 01/31/18 09:00 03/02/18 08:59 01/31/18 09:29 1 PATCH Miscellaneous (Remove Lidoderm Patch) 1 ea DAILY@21 N/A 01/31/18 21:00 03/02/18 20:59 01/31/18 20:51 1 EA Gabapentin (Neurontin Cap) 300 mg TID PO 02/01/18 09:00 03/02/18 08:59 Review of Systems Constitutional: Negative for fever, chills, sweats Eyes: Negative for eye pain, photophobia, drainage Ear, nose, mouth, throat: Negative for ear pain, nasal congestion, mouth lesions , change in voice Respiratory: Negative for wheezing, sputum production Cardiovascular: Negative for chest pain, palpitations, calf pain Gastrointestinal: Negative for abdominal pain, belching, bloating Genitourinary: Negative for dysuria, urinary incontinence, urinary urgency Musculoskeletal: Negative for deformities Integumentary: Negative for nail changes, skin yellowing, pruritus Neurological: Negative for abnormal speech, seizure type activity Physical Exam Height & Weight: Height 6 feet, 1.00 inches. Weight 139.200 (Kilograms) 306 (Pounds) Last Vital Signs Documentation Date Time Temp Pulse Resp B/P (MAP) Pulse Ox O2 Delivery O2 Flow Rate FiO2 02/01/18 07:12 36.7 62 18 96/60 (72) 97 02/01/18 01:07 Room Air Exam: Constitutional: Well-developed, well-nourished, healthy-appearing, obese, currently accompanied by 2 guards at bedside Psych: Awake, alert, and oriented 3 with normal affect and mood. Recent memory appears grossly intact Eyes: Pupils are equally round and reactive to light with normal size pupils, eyelids appear normal Ear, nose, mouth, and throat: Moist nasal and oral membranes, lips and tongues appear normal, no external ear abnormalities are noted Neck: The trachea is midline without deviation and no thyromegaly is noted Respiratory: Normal respiratory effort without distress, no audible wheezes or rhonchi CV: Normal S1 and S2, carotid upstroke is within normal limits Chest: Deferred GI/abdomen: Non-tender without guarding, no masses noted Musculoskeletal: Head is normocephalic and atraumatic, gait is not observed Cervical: Lordotic curve: Normal Range of motion is normal with extension, flexion, side- bending, rotation Tenderness: Non-tender over the axial midline Facet provocation: Negative bilaterally Strength: Strength is grossly equal bilaterally with 5 out of 5 strength in all planes, exam is limited secondary to handcuffs Sensation of upper extremities: Intact bilaterally Lumbar: Lordotic curve: Normal Range of motion is normal with extension, flexion, side- bending, rotation Tenderness: Minimally tender over the axial midline Facet provocation: Negative bilaterally Straight leg raise: Negative bilaterally Step-off injuries: None Strength: Strength is grossly equal bilaterally with 5 out of 5 strength in all planes Sensation of lower extremities: Intact bilaterally Patient has generalized tenderness over his entire left hip girdle. Pathologic reflexes noted: None The patient has bilateral waffle boots on with extensive wound dressings. These wound dressings were not taken down. Skin: As noted above Neuro: No nystagmus noted, the tongue is midline, the patient is able to rotate their head bilaterally : Deferred Laboratory Laboratory Results (Last CBC): 01/31/18 06:42 Red Blood Count 3.45 L, Mean Corpuscular Volume 96.5, Mean Corpuscular Hemoglobin 34.2 H, Mean Corpuscular Hemoglobin Concent 35.4, Mean Platelet Volume 9.9, Neutrophils (%) (Auto) 61.8, Lymphocytes (%) (Auto) 24.3, Monocytes (%) (Auto) 8.7, Eosinophils (%) (Auto) 4.8, Basophils (%) (Auto) 0.2, Neutrophils # (Auto) 3.11, Lymphocytes # (Auto) 1.22, Monocytes # (Auto) 0.44, Eosinophils # (Auto) 0.24, Basophils # (Auto) 0.01 Imaging Radiology Findings Patient: NICOLÁS DIXON [id number] Address1: [facility] Rec: [id number] Address2: Acct ID: [id number] [facility] Zip: [place] [address] Date: 1965 Sex: M Room/Bed: [facility] Ref Phy: [facility] SC: ZAC Att Phy: Ziggy Smiley M.D. Report #: [id number] Cay[place] Phy: [place]AV [place] Test: [id number] Admit Phy: Nimo Vasquez M.D. Wearing Apparel Shaker: ALEX Interpreting Phy: Александр Schmitt D.O. Diagnosis: CELLULITIS Ordering Phy: Ziggy Smiley M.D. Service Date: 01/31/18 Admit Date: 01/29/1805/04/18 MNE: [id number] CONF: DICTATED BY: Александр Schmitt D.O.]] CC: [facility], [place] M.D. Endcc: [~ rep ct add3]] L PELVIS/UNILATERAL HIP 2-3VIEWS HISTORY: 52 years-old Male CELLULITSI acute pain and swelling of the pelvis and left hip COMPARISON: Lumbar spine CT 01/29/2018 TECHNIQUE: AP view of the pelvis with 2 views of the bilateral hips FINDINGS: Chronic appearing subcapital fracture of the left femur is noted with approximately 4.0 cm superior and 3.0 cm lateral displacement of the femur in relation to the acetabulum corticated margins of the fracture noted. There appears to be pseudoarticulation of the left proximal femur in relation to the adjacent acetabulum. Chondrocalcinosis with moderate general changes of the pubic symphysis. There is a least partial bony fusion of the SI joints. No acute pelvic fracture identified. Moderate to severe right hip osteoarthritis without acute fracture or dislocation. The bones appear mildly demineralized. IMPRESSION: 1. Chronic subcapital fracture of the left proximal femur with superolateral displacement and pseudoarticulation of the femur with the adjacent iliac wing. 2. Moderate to severe right hip osteoarthritis without acute fracture or dislocation identified. 3. Partial bony fusion of the SI joints. Nerve Conduction Findings Patient: NICOLÁS DIXON [id number] Address1: [facility] Rec: [id number] Address2: Acct ID: [id number] [facility] Zip: [place] [address] Date: 1965 Sex: M Room/Bed: W257-1 Ref Phy: [facility] [place] SC: C.MS2W Att Phy: Ziggy Smiley M.D. Report #: [id number] Cayla Phy: Austen ESPOSITO Test: ESTHER Admit Phy: Nimo Vasquez M.D. Wearing Apparel Shaker: SANDER Interpreting Phy: Александр Schmitt D.O. Diagnosis: CELLULITIS Ordering Phy: Nakia Burgos Service Date: 01/29/18 Admit Date: 01/29/1805/04/18 MNE: [id number] CONF: DICTATED BY: Александр Schmitt D.O.]] CC: Nakia Burgos .OLVIN [facility] Ziggy Smiley M.D. Endcc: [~ rep ct add3]] R ART DOP DUPLEX LWR EXT UNI HISTORY: 52 years-old Male pain, edema acute pain and swelling of the right lower extremity COMPARISON: Duplex venous Doppler study same day TECHNIQUE: Multiple real-time sonographic images of the right lower extremity arterial structures were obtained assessing grayscale appearance, color and spectral flow FINDINGS: No ABIs were performed secondary to open wounds of the lower extremities. Patent common femoral artery with biphasic waveforms. Biphasic waveforms are also noted within the superficial femoral, popliteal and anterior tibial arteries. Popliteal waveforms are mildly blunted. Blunted monophasic waveforms are seen within the anterior tibial, posterior tibial, peroneal and dorsalis pedis arteries. Study is limited secondary to patient bandages of the right lower extremity. Systolic velocity 190 cm/s noted within the common femoral artery. Elevated peak systolic velocity of 227 cm/s noted within the superficial femoral artery. No arterial occlusion. Moderate subcutaneous edema. IMPRESSION: 1. Biphasic and monophasic waveforms throughout the right lower extremity suggest peripheral arterial disease without evidence of arterial occlusion. 2. Elevated peak systolic velocities within the superficial femoral artery suggest underlying luminal stenosis. 3. Moderate subcutaneous edema about the lower extremity. Patient: NICOLÁS DIXON [id number] Address1: [facility] Rec: [id number] Address2: Acct ID: [id number] [facility] Zip: [place] [address] Date: 1965 Sex: M Room/Bed: W257-1 Ref Phy: [facility] SC: ZAC Att Phy: Ziggy Smiley M.D. Report #: [id number] Cayla Phy: VAIBHAV [facility] Test: VDLEU Admit Phy: Nimo Vasquez M.D. Wearing Apparel Shaker: SANDER Interpreting Phy: Александр Schmitt D.O. Diagnosis: CELLULITIS Ordering Phy: Nakia Burgos Service Date: 01/29/18 Admit Date: 01/29/1805/04/18 MNE: PWRSCRIBE CONF: DICTATED BY: Александр Schmitt D.O.]] CC: Nakia Burgos CRNP [facility], [place] M.D. Endcc: [~ rep ct add3]] R VENOUS DOPP LOWER EXT UNILAT HISTORY: 52 years-old Male pain, edema acute right lower extremity pain and swelling COMPARISON: Duplex arterial study of same day TECHNIQUE: Multiple real-time sonographic images of the right lower extremity deep venous structures were obtained assessing grayscale appearance, color and spectral flow FINDINGS: Normal compressibility, phasicity, flow and augmentation of the right lower extremity deep venous structures. Moderate subcutaneous edema. IMPRESSION: No sonographic evidence of deep venous thrombosis. Other Findings Patient: NICOLÁS DIXON [id number] Address1: [facility] Rec: [id number] Address2: Acct ID: [id number] [facility] Zip: [place] [address] Date: 1965 Sex: M Room/Bed: W2- Ref Phy: VAIBHAV [facility] SC: ZAC Att Phy: Ziggy Smiley M.D. Report #: [id number] Cayla Phy: VAIBHAV [facility] Test: GUEST SERVICES MANAGER Admit Phy: Nimo Vasquez M.D. Wearing Apparel Shaker: SARAH Interpreting Phy: Александр Schmitt D.O. Diagnosis: CELLULITIS Ordering Phy: Nakia Burgos Service Date: 01/29/18 Admit Date: 01/29/1805/04/18 MNE: PWRSCRIBE CONF: DICTATED BY: Александр Schmitt D.O.]] CC: Nakia Burgos CRNP [facility] Ziggy Smiley M.D. Endcc: [~ rep ct add3]] LUMBAR SPINE WITH CT DOSE: 798.22 mGy.cm CLINICAL HISTORY: 52 years-old Male with back pain; r/o abscess. Acute back pain with concern for abscess TECHNIQUE: Multiple axial CT images of the lumbar spine were obtained following the intravenous administration of 95 mL Optiray 320 IV contrast. Coronal and sagittal reformats were generated from the axial data set and submitted for review. A dose lowering technique was utilized adhering to the principles of ALARA. COMPARISON: None. FINDINGS: No acute intra-abdominal or intrapelvic abnormality identified. No aortic aneurysm. Mildly prominent periaortic and left iliac chain lymph nodes measure up to 8 mm. Lymph nodes of the right iliac chain measure up to 1.2 cm in short axis nicely seen on image 298 series 3. Mild subcutaneous stranding of the subcutaneous tissues of the mid to lower lumbar spine appears to be within normal limits and is likely related to obesity. No enhancing fluid collection or epidural abscess identified. There is no acute fracture or subluxation identified. Posterior anya and screw fusion hardware is noted at T11 extending superiorly outside the [id number]. Mild multilevel endplate spurring with moderate multilevel facet arthrosis. Subtle ill-defined linear lucency of the left sacral ala best seen on image 49 series 200 may reflect an acute nondisplaced sacral insufficiency fracture. Bones appear mildly demineralized. There is a nonaggressive appearing sclerotic lesion involving the left aspect of the L4 vertebral body, 10 mm possibly reflecting a bone island. Shortened pedicles cause a slight mild central canal stenosis. T12-L1: No evidence of disc bulge or central canal stenosis is seen. The neural foramina appear patent bilaterally. L1-L2: Small posterior disc bulge with moderate facet arthrosis and ligamentum flavum thickening. Findings cause mild central canal and mild bilateral foraminal narrowing. L2-L3: Small posterior disc bulge with spondylitic spurring and moderate facet arthrosis with ligamentum flavum thickening. Mild central canal and moderate bilateral foraminal narrowing. L3-L4: Small posterior disc bulge with spondylitic spurring, moderate facet arthrosis and ligament of flavum thickening. Mild central canal and mild bilateral foraminal narrowing. L4-L5: Posterior spondylitic spurring with small superficial disc bulge, severe facet arthrosis and mild ligament flavum thickening. Mild central canal stenosis. Left foramen is patent. Mild right foraminal narrowing. L5-S1: Posterior spondylitic spurring with small posterior disc bulge, severe facet arthrosis and ligament of flavum thickening. Flattening of the ventral thecal sac without significant central canal stenosis. Left foramen is patent. Mild right foraminal narrowing. IMPRESSION: 1. Linear ill-defined lucency of the left sacral ala may reflect an acute nondisplaced sacral insufficiency fracture. Correlate with point tenderness and patient history. 2. No abnormal enhancement or focal fluid collections to suggest abscess. 3. Posterior fusion hardware of the lower thoracic spine partially imaged. 4. Indeterminate mildly prominent periaortic and mildly enlarged right iliac chain lymph nodes. Past Records Previous Records: none available for review A 12-lead EKG obtained today reveals normal sinus rhythm with few PVCs at 68 bpm with a QTc interval of 448 ms Assessment 1. Lumbar postlaminectomy syndrome 2. Lumbago 3. Bilateral open wounds being treated by wound clinic 4. Chronic peripheral neuropathic pain 5. Current incarcerated status 6. Left sacral fracture 7. Chronic left femur subcapital fracture Recommendations 1. Recommend discontinuation of tramadol and Flexeril. 2. Recommend continuation of Lidoderm patch over left hip girdle at point of maximal pain. Can utilize 2 patches if desired for better coverage. 3. Consider increase in methadone to 10 mg p.o. twice daily. This should be at the discretion of his outpatient prescriber. Suspect he will have additional narcotic requirement while bilateral lower extremity wounds are healing. An EKG checked today confirms that QTC interval is acceptable for possible dose increase. 4. Will increase gabapentin to 300 gm p.o. 3 times daily. Consider escalation to a maximum of 900 mg p.o. 3 times daily for minimizing neuropathic pain. 5. Thank you for this consultation please call with any questions.
[2018-02-01] MEDS: KETOROLAC TROMETHAMINE 30 MG/ML VIAL IV PRN ×3 (10:12→23:04)
[2018-02-01] MEDS: BACLOFEN TAB 20 MG TAB PO SCH ×4 (10:12→20:43)
[2018-02-01] MEDS: ATORVASTATIN 20 MG TAB PO SCH (10:14)
[2018-02-01] MEDS: LIDODERM (LIDOCAINE) PATCH 5% TD SCH (10:15)
[2018-02-01] MEDS: FUROSEMIDE 40 MG TAB PO SCH ×2 (10:15→17:11)
[2018-02-01] MEDS: GABAPENTIN 300 MG CAP PO SCH ×3 (10:36→20:43)
[2018-02-01] MEDS: METHADONE HCL 10 MG TAB PO SCH (10:36)
[2018-02-01] MEDS ORDERED: VANCOMYCIN TROUGH ONE (13:30)
--- NOTE | 2018-02-01 15:02 | Pharmacy Progress Note ---
Pharmacy Abx Dose Short Note Date of Service February 01, 2018. Assessment & Plan Assessment 52 year old male receiving Vancomycin for treatment of cellulitis Day # 01/05 of antimicrobial therapy. Plan Vancomycin * Trough level of 18.4 mcg/mL is therapeutic * Continue dose of 2000 mg IV every 12 hours Will recheck trough level in 3-5 days, sooner if renal function diminishes. Pharmacy will continue to follow and will adjust dose/frequency as necessary. Thank you.
--- NOTE | 2018-02-01 15:06 | Progress Note ---
Internal Med Progress Note Date of Service: February 01, 2018. Provider Documentation: SUBJECTIVE: No acute distress. Patient reports still of leg pain and back, left hip pain. Pain is better controlled today compared to yesterday. Patient is from correctional facility and under guard OBJECTIVE: General Appearance: no acute distress Head: normocephalic, atraumatic Eyes: normal inspection, EOMI ENT: hearing grossly normal Neck: supple, no JVD, trachea midline Respiratory/Chest: lungs clear, normal breath sounds, no respiratory distress Cardiovascular: regular rate, rhythm, no edema, normal peripheral pulses Abdomen/GI: normal bowel sounds, non tender, soft, no organomegaly Back: point tenderness of spine of middle back Extremities/Musculoskelatal: Bilateral lower extremities edematous, erythematous, and warm to touch, prior surgical scar running down left leg, bilateral feet in dressing Neurologic/Psych: alert, oriented ASSESSMENT & PLAN: POLYMICROBIAL BILATERAL LOWER EXTREMITY CELLULITIS / LYMPHEDEMA -lower extremity edema and erythema; was recently evaluated at the wound center , culture was obtained which grew Aeromonas hydrophilia, Pseudomonas, MRSA, Alcaligenes, and corynebacterium; patient was placed on IV imipenem and p.o. Bactrim; patient chronically on suppression therapy with Keflex for history of spinal abscess -Venous and arterial Dopplers of bilateral lower extremities are without clots or problems with blood flow -on the this admission, patient has been on Vancomycin and Zosyn, blood culture from 01/29/18 no growth to date, wound culture of legs have been ordered on to attempt identification of potential infective organism, SURFACE WOUND CULTURE Preliminary 02/01/18-4608 Organism 1 PROBABLE PSEUDOMONAS SPECIES QUANITY FEW SENS SENSITIVITY TO FOLLOW Organism 2 COAG NEG STAPHYLOCOCCUS QUANITY MODERATE SENS NO SENSITIVITY TO FOLLOW Organism 3 CORYNEBACTERIUM SPECIES QUANITY MODERATE SENS NO SENSITIVITY TO FOLLOW Possibly can continue Zosyn only given lack of MRSA findings on this admission, but will continue Vancomycin and Zosyn for now given history of infections and will defer to infectious disease consult on adjusting antibiotics - wound care consult was requested -Continue Lasix for lymphedema CHRONIC BACK PAIN -Patient with history of spinal abscess and back surgeries 5 -Lumbar spine CT with Linear ill-defined lucency of the left sacral ala may reflect an acute nondisplaced sacral insufficiency fracture but his back pain reported to be higher than this area and no other findings of abscess or problems with hardware -Orthopedics 02/01/18: closed treatment of left sacral ala fracture and nonsurgical management -Pain Management 02/01/18: discontinue of tramadol and Flexeril, continuation of Lidoderm patch over left hip girdle at point of maximal pain and can utilize 2 patches if desired for better coverage, increase gabapentin to 300 gm p.o. 3 times daily and consider escalation to a maximum of 900 mg p.o. 3 times daily for minimizing neuropathic pain -patient comes to hospital with regimen of methadone 10 mg PO daily, would not increase this medication at this time Electrolytes/Renal function -Monitor for electrolyte deficiencies and renal function while on Lasix for the leg edema -Magnesium 1.9 on 01/31/18 and had received 1 gram of IV magnesium on 01/31/18, trend magnesium periodically DYSLIPIDEMIA -Continue statin DVT PROPHYLAXIS -SQ Lovenox Vital Signs: Date Time Temp Pulse Resp B/P (MAP) Pulse Ox O2 Delivery O2 Flow Rate FiO2 02/01/18 08:00 97 Room Air 02/01/18 07:12 36.7 62 18 96/60 (72) 97 02/01/18 01:07 Room Air 01/31/18 23:20 37.2 71 20 100/61 (74) 96 Room Air 01/31/18 20:27 Room Air 01/31/18 17:01 36.7 76 18 116/72 (87) 96 01/31/18 16:00 Room Air Lab Results: Results Past 24 Hours Test 02/01/18 06:50 02/01/18 13:28 Range/Units Creatinine 0.67 0.60-1.40 mg/dl Est Creatinine Clear Calc Drug Dose 189.0 ml/min Estimated GFR () 128.0 Estimated GFR (Non- 110.5 Vancomycin Level Trough 18.4 SEE COMMENT mcg/ml
[2018-02-01 15:39] VITALS: BP 120/63; PULSE 69; TEMP 37.1; O2SAT 96
[2018-02-01 16:00] VITALS: O2SAT 97
[2018-02-01] MEDS: ENOXAPARIN 40 MG/0.4 ML SYR SQ SCH (20:44)
--- NOTE | 2018-02-01 22:00 | Infectious Disease Progress Nt ---
Progress Note Date of Service February 01, 2018. Subjective Pt evaluation today including: conversation w/ patient, physical exam, chart review, lab review, review of studies, conversation w/ specialty sales consultant, review of inpatient medication list Pain slowly improving in left leg and foot. Remains afebrile. No other new complaints. All Other Systems: Reviewed and Negative Medications Current Inpatient Medications Medications (Trade) Dose Ordered Sig/Neo Route Start Time Stop Time Status Last Admin Dose Admin Enoxaparin Sodium (Lovenox Inj) 40 mg HS SQ 01/29/18 21:00 02/28/18 20:59 02/01/18 20:44 40 MG Ondansetron HCl (Zofran Inj) 4 mg Q6H PRN IV 01/29/18 16:15 02/28/18 16:14 Miscellaneous Information (Consult) 1 ea UD PRN N/A 01/29/18 17:42 02/28/18 17:41 Ioversol (Optiray 320) 100 ml UD PRN IV 01/29/18 16:15 02/02/18 16:14 Ketorolac Tromethamine (Toradol Inj) 30 mg Q6H PRN IV 01/29/18 16:30 02/03/18 16:29 02/01/18 15:39 30 MG Atorvastatin Calcium (Lipitor Tab) 20 mg DAILY PO 01/30/18 09:00 03/01/18 08:59 02/01/18 10:14 20 MG Furosemide (Lasix Tab) 40 mg BID17 PO 01/29/18 21:00 02/28/18 20:59 02/01/18 17:11 40 MG Methadone HCl (Dolophine Tab) 10 mg DAILY PO 01/30/18 09:00 02/13/18 08:59 02/01/18 10:36 10 MG Miscellaneous Information (Consult) 1 ea UD PRN N/A 01/29/18 17:45 02/28/18 17:44 Piperacillin Sod/ Tazobactam Sod 4.5 gm/Sodium Chloride 120 ml @ 30 mls/hr Q8H IV 01/29/18 22:00 02/08/18 21:59 02/01/18 14:01 30 MLS/HR Ibuprofen (Advil Tab) 400 mg Q6H PRN PO 01/29/18 19:45 02/28/18 19:44 02/01/18 10:13 400 MG Acetaminophen (Tylenol Tab) 650 mg Q6H PRN PO 01/29/18 19:45 02/28/18 19:44 01/31/18 18:35 650 MG Baclofen (Lioresal Tab) 20 mg QID PO 01/30/18 09:00 02/28/18 20:59 02/01/18 20:43 20 MG Vancomycin HCl 2000 mg/Sodium Chloride 540 ml @ 200 mls/hr Q12H IV 01/31/18 02:00 02/08/18 01:59 02/01/18 17:01 200 MLS/HR Lidocaine (Lidoderm Patch 5%) 1 patch QAM TD 01/31/18 09:00 03/02/18 08:59 02/01/18 10:15 1 PATCH Miscellaneous (Remove Lidoderm Patch) 1 ea DAILY@21 N/A 01/31/18 21:00 03/02/18 20:59 02/01/18 20:43 1 EA Gabapentin (Neurontin Cap) 300 mg TID PO 02/01/18 09:00 03/02/18 08:59 02/01/18 20:43 300 MG Objective Vital Signs Date Time Temp Pulse Resp B/P (MAP) Pulse Ox O2 Delivery O2 Flow Rate FiO2 02/01/18 16:00 97 Room Air 02/01/18 15:39 37.1 69 20 120/63 (82) 96 Room Air 02/01/18 08:00 97 Room Air 02/01/18 07:12 36.7 62 18 96/60 (72) 97 02/01/18 01:07 Room Air 01/31/18 23:20 37.2 71 20 100/61 (74) 96 Room Air Physical Exam General Appearance: WD/WN, no apparent distress Eyes: normal inspection, EOMI, sclerae normal ENT: normal ENT inspection, hearing grossly normal, pharynx normal Neck: supple, no adenopathy, thyroid normal, trachea midline Respiratory/Chest: chest non-tender, lungs clear, normal breath sounds, no respiratory distress Cardiovascular: regular rate, rhythm, no gallop, no murmur Abdomen: normal bowel sounds, non tender, soft, no organomegaly Extremities: no calf tenderness, + inflammation, + swelling Neurologic/Psychiatric: alert, oriented x 3 Skin: normal color, no rash, + pertinent finding (Erythema left foot about the same) Lymphatic: no adenopathy Laboratory Results RUN DATE: 02/01/18 [facility] LAB PAGE 1 RUN TIME: 1248 Specimen Inquiry PATIENT: NICOLÁS DIXON [id number] LOC: [id number] U # : [id number] AGE/SX: 52/M ROOM: [facility] REG : 01/29/[address]: Ziggy Smiley M.D. : 1965 BED: 1 DIS : STATUS: ADM IN TLOC: SPEC #: [id number] JILLIAN: 01/31/18 STATUS: RES REQ #: [id number] RECD: 01/31/18-[address]: Ziggy Smiley M.D. SOURCE: SKIN ENTR: 01/31/18-[address]: Galdino Nash D.OEllis SPDESC: LEG Mo Doran MD, Jennifer L., Nakia Breen ., Nimo Gould M.D. [facility] ORDERED: SURF WNNate CU/FARHAT COMMENTS: Specimen Comment Speciment already in lab Has Specimen Been Obtained/Collected? Y Procedure Result Verified Site GRAM STAIN Final 02/01/18-732 RESULT FEW WBCs SEEN FEW GRAM POSITIVE COCCI SURFACE WOUND CULTURE Preliminary 02/01/18-124 Organism 1 PROBABLE PSEUDOMONAS SPECIES QUANITY FEW SENS SENSITIVITY TO FOLLOW Organism 2 COAG NEG STAPHYLOCOCCUS QUANITY MODERATE SENS NO SENSITIVITY TO FOLLOW Organism 3 CORYNEBACTERIUM SPECIES QUANITY MODERATE SENS NO SENSITIVITY TO FOLLOW END OF REPORT Last 24 Hours Test 02/01/18 06:50 02/01/18 13:28 Creatinine 0.67 mg/dl Est Creatinine Clear Calc Drug Dose 189.0 ml/min Estimated GFR () 128.0 Estimated GFR (Non- 110.5 Vancomycin Level Trough 18.4 mcg/ml Assessment and Plan 52-year-old male with bilateral lower extremity in feet cellulitis with polymicrobial infection including Pseudomonas, MRSA, and Alcaligenes. Current treatment with vancomycin and Zosyn appropriate pending further culture results , length of IV antibiotics to be determined by clinical response. Will follow.
[2018-02-02] MEDS: IBUPROFEN 200 MG TAB PO PRN ×3 (00:05→18:47)
[2018-02-02 00:19] VITALS: BP 121/63; PULSE 67; TEMP 36.9; O2SAT 98
[2018-02-02] MEDS: VANCOMYCIN IV 2,000 MG in SODIUM CHLORIDE 0.9% 500ML 500 ML IV SCH ×2 (01:48→13:26)
[2018-02-02] MEDS: PIPERACILL/TAZOBAC IV 4.5 GM in NSS 100 ML IV SCH ×3 (05:50→22:38)
[2018-02-02 06:16] LABS: BASO % 0.2 %; BASO ABS # 0.01 K/uL (0-0.2); EOS % 8.4 %; EOS ABS # 0.37 K/uL (0-0.5); HEMATOCRIT 34.2 % (42-52); HEMOGLOBIN 11.5 g/dL (14.0-18.0); IG# 0.02 K/uL (0.00-0.02); LYMPH % 27.8 %; LYMPH ABS # 1.23 K/uL (1.2-3.4); MEAN CELL VOLUME 99.1 fL (80-100); MEAN CORPUSCULAR HEMOGLOBIN 33.3 pg (25-34); MEAN CORPUSCULAR HGB CONC 33.6 g/dl (32-36); MEAN PLATELET VOLUME 9.7 fL (7.4-10.4); MONO % 11.5 %; MONO ABS # 0.51 K/uL (0.11-0.59); NEUT % 51.6 %; NEUT ABS # 2.28 K/uL (1.4-6.5); PLATELET COUNT 128 K/uL (130-400); RED CELL DISTRIBUTION WIDTH CV 13.9 % (11.5-14.5); RED CELL DISTRIBUTION WIDTH SD 49.7 fL (36.4-46.3); WHITE BLOOD COUNT 4.42 K/uL (4.8-10.8)
[2018-02-02 06:56] LABS: ALBUMIN 2.7 gm/dl (3.4-5.0); CALCIUM 7.8 mg/dl (8.5-10.1); CREATININE 0.69 mg/dl (0.60-1.40); POTASSIUM 4.5 mmol/L (3.5-5.1)
[2018-02-02 06:59] LABS: TOTAL PROTEIN 6.4 gm/dl (6.4-8.2)
[2018-02-02] MEDS: KETOROLAC TROMETHAMINE 30 MG/ML VIAL IV PRN ×2 (07:31→16:47)
[2018-02-02 07:50] VITALS: BP 106/70; PULSE 71; TEMP 36.4; O2SAT 99
[2018-02-02] MEDS: BACLOFEN TAB 20 MG TAB PO SCH ×4 (08:42→20:30)
[2018-02-02] MEDS: LIDODERM (LIDOCAINE) PATCH 5% TD SCH (08:42)
[2018-02-02] MEDS: GABAPENTIN 300 MG CAP PO SCH ×3 (08:44→20:29)
[2018-02-02] MEDS: ATORVASTATIN 20 MG TAB PO SCH (08:44)
[2018-02-02] MEDS: FUROSEMIDE 40 MG TAB PO SCH ×2 (08:46→16:49)
[2018-02-02] MEDS: METHADONE HCL 10 MG TAB PO SCH (09:09)
[2018-02-02 15:13] VITALS: BP 131/66; PULSE 69; TEMP 36.3; O2SAT 97
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
--- NOTE | 2018-02-02 20:22 | Infectious Disease Progress Nt ---
Progress Note Date of Service February 02, 2018. Subjective Pt evaluation today including: conversation w/ patient, physical exam, chart review, lab review, review of studies, conversation w/ pharmacy consultant, review of inpatient medication list Offers no new complaints today. Remains afebrile. Continues to tolerate antibiotic All Other Systems: Reviewed and Negative Medications Current Inpatient Medications Medications (Trade) Dose Ordered Sig/Neo Route Start Time Stop Time Status Last Admin Dose Admin Enoxaparin Sodium (Lovenox Inj) 40 mg HS SQ 01/29/18 21:00 02/28/18 20:59 02/01/18 20:44 40 MG Ondansetron HCl (Zofran Inj) 4 mg Q6H PRN IV 01/29/18 16:15 02/28/18 16:14 Miscellaneous Information (Consult) 1 ea UD PRN N/A 01/29/18 17:42 02/28/18 17:41 Ketorolac Tromethamine (Toradol Inj) 30 mg Q6H PRN IV 01/29/18 16:30 02/03/18 16:29 02/02/18 16:47 30 MG Atorvastatin Calcium (Lipitor Tab) 20 mg DAILY PO 01/30/18 09:00 03/01/18 08:59 02/02/18 08:44 20 MG Furosemide (Lasix Tab) 40 mg BID17 PO 01/29/18 21:00 02/28/18 20:59 02/02/18 16:49 40 MG Methadone HCl (Dolophine Tab) 10 mg DAILY PO 01/30/18 09:00 02/13/18 08:59 02/02/18 09:09 10 MG Miscellaneous Information (Consult) 1 ea UD PRN N/A 01/29/18 17:45 02/28/18 17:44 Piperacillin Sod/ Tazobactam Sod 4.5 gm/Sodium Chloride 120 ml @ 30 mls/hr Q8H IV 01/29/18 22:00 02/08/18 21:59 02/02/18 13:26 30 MLS/HR Ibuprofen (Advil Tab) 400 mg Q6H PRN PO 01/29/18 19:45 02/28/18 19:44 02/02/18 18:47 400 MG Acetaminophen (Tylenol Tab) 650 mg Q6H PRN PO 01/29/18 19:45 02/28/18 19:44 01/31/18 18:35 650 MG Baclofen (Lioresal Tab) 20 mg QID PO 01/30/18 09:00 02/28/18 20:59 02/02/18 16:48 20 MG Vancomycin HCl 2000 mg/Sodium Chloride 540 ml @ 200 mls/hr Q12H IV 01/31/18 02:00 02/08/18 01:59 02/02/18 13:26 200 MLS/HR Lidocaine (Lidoderm Patch 5%) 1 patch QAM TD 01/31/18 09:00 03/02/18 08:59 02/02/18 08:42 1 PATCH Miscellaneous (Remove Lidoderm Patch) 1 ea DAILY@21 N/A 01/31/18 21:00 03/02/18 20:59 02/01/18 20:43 1 EA Gabapentin (Neurontin Cap) 300 mg TID PO 02/01/18 09:00 03/02/18 08:59 02/02/18 13:26 300 MG Objective Vital Signs Date Time Temp Pulse Resp B/P (MAP) Pulse Ox O2 Delivery O2 Flow Rate FiO2 02/02/18 16:00 Room Air 02/02/18 15:13 36.3 69 20 131/66 (87) 97 Nasal Cannula 02/02/18 08:00 Room Air 02/02/18 07:50 36.4 71 16 106/70 (82) 99 Room Air 02/02/18 00:35 Room Air 02/02/18 00:19 36.9 67 20 121/63 (82) 98 Room Air Physical Exam General Appearance: WD/WN, no apparent distress Eyes: normal inspection, EOMI, funduscopic exam normal ENT: normal ENT inspection, pharynx normal Neck: supple, no adenopathy, thyroid normal, trachea midline Respiratory/Chest: chest non-tender, lungs clear, normal breath sounds, no respiratory distress Cardiovascular: regular rate, rhythm, no gallop, no murmur Abdomen: normal bowel sounds, non tender, soft, no organomegaly Extremities: no calf tenderness, + inflammation, + swelling Neurologic/Psychiatric: alert, oriented x 3 Skin: normal color, + pertinent finding (Leg dressings intact) Lymphatic: no adenopathy Laboratory Results Last 24 Hours Test 02/02/18 05:53 White Blood Count 4.42 K/uL Red Blood Count 3.45 M/uL Hemoglobin 11.5 g/dL Hematocrit 34.2 % Mean Corpuscular Volume 99.1 fL Mean Corpuscular Hemoglobin 33.3 pg Mean Corpuscular Hemoglobin Concent 33.6 g/dl Platelet Count 128 K/uL Mean Platelet Volume 9.7 fL Neutrophils (%) (Auto) 51.6 % Lymphocytes (%) (Auto) 27.8 % Monocytes (%) (Auto) 11.5 % Eosinophils (%) (Auto) 8.4 % Basophils (%) (Auto) 0.2 % Neutrophils # (Auto) 2.28 K/uL Lymphocytes # (Auto) 1.23 K/uL Monocytes # (Auto) 0.51 K/uL Eosinophils # (Auto) 0.37 K/uL Basophils # (Auto) 0.01 K/uL RDW Standard Deviation 49.7 fL RDW Coefficient of Variation 13.9 % Immature Granulocyte % (Auto) 0.5 % Immature Granulocyte # (Auto) 0.02 K/uL Sodium Level 141 mmol/L Potassium Level 4.5 mmol/L Chloride Level 107 mmol/L Carbon Dioxide Level 32 mmol/L Anion Gap 2.0 mmol/L Blood Urea Nitrogen 10 mg/dl Creatinine 0.69 mg/dl Est Creatinine Clear Calc Drug Dose 183.5 ml/min Estimated GFR () 126.5 Estimated GFR (Non- 109.1 BUN/Creatinine Ratio 14.8 Random Glucose 107 mg/dl Calcium Level 7.8 mg/dl Magnesium Level 2.2 mg/dl Total Bilirubin 0.6 mg/dl Aspartate Amino Transf (AST/SGOT) 34 U/L Alanine Aminotransferase (ALT/SGPT) 40 U/L Alkaline Phosphatase 71 U/L Total Protein 6.4 gm/dl Albumin 2.7 gm/dl Globulin 3.7 gm/dl Albumin/Globulin Ratio 0.7 Assessment and Plan 52-year-old male with bilateral lower extremity in feet cellulitis with polymicrobial infection including Pseudomonas, MRSA, and Alcaligenes. Current treatment with vancomycin and Zosyn appropriate. Will likely need in the range of 14 days total.
[2018-02-02] MEDS: ENOXAPARIN 40 MG/0.4 ML SYR SQ SCH (20:30)
[2018-02-02 23:46] VITALS: BP 109/63; PULSE 74; TEMP 37.4; O2SAT 96
[2018-02-03] MEDS: VANCOMYCIN IV 2,000 MG in SODIUM CHLORIDE 0.9% 500ML 500 ML IV SCH ×2 (02:27→13:36)
[2018-02-03] MEDS: PIPERACILL/TAZOBAC IV 4.5 GM in NSS 100 ML IV SCH ×3 (05:25→21:57)
[2018-02-03 07:10] VITALS: BP 93/53; PULSE 62; TEMP 36.8; O2SAT 97
[2018-02-03] MEDS: GABAPENTIN 300 MG CAP PO SCH ×3 (07:47→20:55)
[2018-02-03] MEDS: ATORVASTATIN 20 MG TAB PO SCH (07:47)
[2018-02-03] MEDS: FUROSEMIDE 40 MG TAB PO SCH ×2 (07:47→17:47)
[2018-02-03] MEDS: METHADONE HCL 10 MG TAB PO SCH (07:47)
[2018-02-03] MEDS: BACLOFEN TAB 20 MG TAB PO SCH ×4 (07:47→20:37)
[2018-02-03] MEDS: LIDODERM (LIDOCAINE) PATCH 5% TD SCH (07:48)
--- NOTE | 2018-02-03 10:59 | Pharmacy Progress Note ---
Pharmacy Abx Dose Short Note Date of Service February 03, 2018. Assessment & Plan Assessment 52 year old male receiving Vancomycin & Zosyn for treatment of BLE cellulitis Day # 03/07 of antimicrobial therapy. Plan Vancomycin * Continue dose of 2000 mg IV every 12 hours * Trough level ordered for: 02/04/18 @ 1330 * Since patient continues on Vancomycin will recheck trough level tomorrow (02/04). Also ordered creatinine levels to be done every other day because of chance of renal impairment (patient's renal function has remained stable) Pharmacy will continue to follow and will adjust dose/frequency as necessary. Thank you.
[2018-02-03] MEDS: IBUPROFEN 200 MG TAB PO PRN ×2 (13:37→23:29)
[2018-02-03 16:01] VITALS: BP 107/61; PULSE 71; TEMP 37.4; O2SAT 94
[2018-02-03] MEDS: ENOXAPARIN 40 MG/0.4 ML SYR SQ SCH (20:55)
--- NOTE | 2018-02-03 21:53 | DIAGNOSTIC IMAGING REPORT ---
VENOUS DOPPLER LWR EXT BILA CLINICAL HISTORY: 52 years-old Male presenting with bilateral thigh swelling. TECHNIQUE: Real-time grayscale and color and spectral Doppler ultrasound imaging of the veins of the bilateral lower extremities was performed. Compression and augmentation were also utilized. COMPARISON: 01/29/2018. FINDINGS: Right: Common femoral vein: Patent. Greater saphenous vein: Patent. Deep femoral vein: Patent. Femoral vein: Patent. Popliteal vein: Patent. Calf veins: Limited visualization secondary to subcutaneous edema. Left: Common femoral vein: Patent. Greater saphenous vein: Patent. Deep femoral vein: Patent. Femoral vein: Patent. Popliteal vein: Patent. Calf veins: Limited visualization secondary to subcutaneous edema. Other: Prominent bilateral inguinal lymph nodes. The largest is on the left and measures 5.4 x 1.1 x 4.1 cm. These are pathologically enlarged. IMPRESSION: 1. No evidence of deep venous thrombosis. 2. Pathologically enlarged lymph nodes. These may be reactive though correlate with a history of malignancy or lymphoproliferative disease. If there is clinical concern, these would be amenable to ultrasound-guided fine-needle aspiration though follow-up in 4-6 weeks could also be obtained as an alternate. Electronically signed by: Hector Mora M.D. 02/03/2018 9:52 PM Dictated Date/Time: 02/03/2018 9:49 PM
[2018-02-03] MEDS: POLYETHYLENE (MIRALAX) 17 GM PACK PO SCH (21:57)
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
[2018-02-04 00:09] VITALS: BP 123/67; PULSE 64; TEMP 37.1; O2SAT 94
[2018-02-04] MEDS: VANCOMYCIN IV 2,000 MG in SODIUM CHLORIDE 0.9% 500ML 500 ML IV SCH ×2 (02:11→14:03)
[2018-02-04] MEDS: PIPERACILL/TAZOBAC IV 4.5 GM in NSS 100 ML IV SCH ×3 (05:40→21:24)
[2018-02-04] MEDS: IBUPROFEN 200 MG TAB PO PRN ×3 (05:41→19:07)
[2018-02-04 07:02] VITALS: BP 132/78; PULSE 55; TEMP 36.7; O2SAT 97
[2018-02-04 08:00] VITALS: O2SAT 97
[2018-02-04] MEDS: GABAPENTIN 300 MG CAP PO SCH ×3 (08:31→21:23)
[2018-02-04] MEDS: BACLOFEN TAB 20 MG TAB PO SCH ×4 (08:31→21:23)
[2018-02-04] MEDS: ATORVASTATIN 20 MG TAB PO SCH (08:31)
[2018-02-04] MEDS: POLYETHYLENE (MIRALAX) 17 GM PACK PO SCH ×2 (08:32→21:00)
[2018-02-04] MEDS: FUROSEMIDE 40 MG TAB PO SCH ×2 (08:32→17:23)
[2018-02-04] MEDS: LIDODERM (LIDOCAINE) PATCH 5% TD SCH (08:32)
[2018-02-04] MEDS: METHADONE HCL 10 MG TAB PO SCH (08:32)
[2018-02-04] MEDS ORDERED: VANCOMYCIN TROUGH ONE (13:30)
[2018-02-04 13:57] LABS: HEMATOCRIT 36.5 % (42-52); HEMOGLOBIN 12.4 g/dL (14.0-18.0); MEAN CELL VOLUME 98.4 fL (80-100); MEAN CORPUSCULAR HEMOGLOBIN 33.4 pg (25-34); MEAN PLATELET VOLUME 9.5 fL (7.4-10.4); PLATELET COUNT 141 K/uL (130-400); RED CELL DISTRIBUTION WIDTH CV 13.7 % (11.5-14.5); RED CELL DISTRIBUTION WIDTH SD 48.9 fL (36.4-46.3); WHITE BLOOD COUNT 3.86 K/uL (4.8-10.8)
[2018-02-04 14:20] LABS: CALCIUM 8.3 mg/dl (8.5-10.1); CREATININE 0.76 mg/dl (0.60-1.40); POTASSIUM 4.1 mmol/L (3.5-5.1)
[2018-02-04 15:30] VITALS: BP 116/67; PULSE 73; TEMP 36.9; O2SAT 95
--- NOTE | 2018-02-04 16:04 | Pharmacy Progress Note ---
Pharmacy Abx Dose Short Note Date of Service February 04, 2018. Assessment & Plan Assessment 52 year old male receiving Vancomycin for treatment of BLE cellulitis Day # 7 of antimicrobial therapy. Plan Vancomycin * Trough level of 14.8 mcg/mL is therapeutic * Continue dose of 2000 mg IV every 12 hours * Goal trough level for cellulitis : 15 to 20 mcg/mL * If patient is to remain on Vancomycin will order additional trough level. Pharmacy will continue to follow and will adjust dose/frequency as necessary. Thank you.
[2018-02-04] MEDS: ACETAMINOPHEN 325 MG TAB PO PRN (17:27)
--- NOTE | 2018-02-04 17:45 | DIAGNOSTIC IMAGING REPORT ---
CHEST ONE VIEW PORTABLE HISTORY: 52 years-old Male PICC LINE PLACEMENT TO RIGHT ARM status post placement of a right-sided PICC COMPARISON: None available TECHNIQUE: Portable AP view of the chest FINDINGS: Status post placement of a right-sided PICC with distal tip projecting superiorly outside the [id number] within the distribution of the right internal jugular vein. No postprocedural pneumothorax identified. Cardiac silhouette is mildly enlarged. Surgical clips project over the right hilar distribution. There is mild pulmonary vascular congestion with mild hypoinflation. Subsegmental bibasilar opacities favor atelectasis. No large pleural effusion. Degenerative changes of the shoulders and spine with fusion hardware of the midthoracic spine. IMPRESSION: 1. Right-sided PICC terminates outside the [id number] traversing within the expected region of the right internal jugular vein. Repositioning with follow-up imaging recommended. No postprocedural pneumothorax identified. 2. Cardiomegaly with mild hypoinflation and bibasilar atelectasis. The above report was generated using voice recognition software. It may contain grammatical, syntax or spelling errors. Electronically signed by: Man Schmitt M.D. 02/04/2018 5:43 PM Dictated Date/Time: 02/04/2018 5:41 PM
[2018-02-04] MEDS: ENOXAPARIN 40 MG/0.4 ML SYR SQ SCH (21:23)
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
[2018-02-04 23:56] VITALS: BP 113/67; PULSE 69; TEMP 37.1; O2SAT 91
[2018-02-05] MEDS: ACETAMINOPHEN 325 MG TAB PO PRN ×2 (00:19→16:45)
[2018-02-05] MEDS: VANCOMYCIN IV 2,000 MG in SODIUM CHLORIDE 0.9% 500ML 500 ML IV SCH ×2 (01:34→13:25)
[2018-02-05] MEDS: IBUPROFEN 200 MG TAB PO PRN ×3 (02:29→20:35)
[2018-02-05] MEDS: PIPERACILL/TAZOBAC IV 4.5 GM in NSS 100 ML IV SCH ×2 (05:47→13:25)
[2018-02-05 07:25] VITALS: BP 111/64; PULSE 58; TEMP 36; O2SAT 96
[2018-02-05] MEDS: METHADONE HCL 10 MG TAB PO SCH (07:29)
[2018-02-05] MEDS: POLYETHYLENE (MIRALAX) 17 GM PACK PO SCH ×2 (07:30→20:34)
[2018-02-05] MEDS: BACLOFEN TAB 20 MG TAB PO SCH ×4 (07:30→20:33)
[2018-02-05] MEDS: LIDODERM (LIDOCAINE) PATCH 5% TD SCH (07:30)
[2018-02-05] MEDS: FUROSEMIDE 40 MG TAB PO SCH ×2 (07:30→16:45)
[2018-02-05] MEDS: ATORVASTATIN 20 MG TAB PO SCH (07:30)
[2018-02-05] MEDS: GABAPENTIN 300 MG CAP PO SCH ×3 (07:32→20:34)
[2018-02-05 08:00] VITALS: O2SAT 96
[2018-02-05 14:41] VITALS: BP 124/71; PULSE 68; TEMP 36.5; O2SAT 96
[2018-02-05 16:00] VITALS: O2SAT 96
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
[2018-02-05] MEDS ORDERED: ATOR-26 PO (17:34)
[2018-02-05] MEDS ORDERED: LVNIS40 SQ (17:34)
[2018-02-05] MEDS ORDERED: NRN300 PO (17:34)
[2018-02-05] MEDS ORDERED: IBUP-1050 PO (17:34)
[2018-02-05] MEDS ORDERED: VANC500I IV (17:34)
[2018-02-05] MEDS ORDERED: PIPE2SOL IV (17:34)
--- NOTE | 2018-02-05 17:43 | Discharge Instructions ---
Discharge Instructions Date of Service February 05, 2018. Admission Reason for Admission: cellulitis lower extremities . Discharge Discharge Diagnosis / Problem: cellulitis lower extremities Discharge Goals Goal(s): Decrease discomfort, Improve disease control Activity Recommendations Activity Level: Assistance Required Therapies: Physical Therapy, Occupational Therapy . Additional Information Patient informed of condition: Yes Advance Directives: No DNR: No Level of Care: Other Communicable Disease: Yes Prognosis: Improving Teresa Catheter: No Instructions / Follow-Up Instructions / Follow-Up Please arrange for follow-up with Wound Clinic next week. Thank you for receiving this patient in transfer. Please call if you have any questions. Kelvin aFlcon . Current Hospital Diet Patient's current hospital diet: AHA Diet (Heart Healthy) Discharge Diet Recommended Diet: AHA Diet (Heart Healthy) Pending Studies Studies pending at discharge: no Physician Orders On Transfer Special Precautions: Contact precautions for MRSA. Skin precautions. . Dressing Changes: Bilateral lower extremities: cleanse gently with mild soap and water cleanse open wounds with sterile saline apply Aquacel Ag to open / weeping areas; ABD pads over weeping areas apply Adaptic to ulcers that are not weeping wrap with sterile gauze apply Tubigrip size G over top of dressings daily + PRN . IV Therapy: Routine PICC care. Discontinue PICC when IV access no longer necessary (please verify stop date with Wound Clinic). . Additional Orders: Please check vancomycin trough, CBC, basic metabolic profile on 02/08/18. . Medical Emergencies . Who to Call and When: Medical Emergencies: If at any time you feel your situation is an emergency, please call 911 immediately. . Non-Emergent Contact Non-Emergency issues call your: Primary Care Provider, Specialist (Wound Clinic ) . . "Provider Documentation" section prepared by Kelvin Falcon. . Core Measure Problem Core Measures: None [place] Drug Monitoring Program Drug Monitoring Findings: [facility] patient. .
[2018-02-05] MEDS ORDERED: LDDP5 TD (17:46)
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
[2018-02-05 18:34] VITALS: BP 124/71; PULSE 68; TEMP 36.5; O2SAT 96
[2018-02-05] MEDS: ENOXAPARIN 40 MG/0.4 ML SYR SQ SCH (20:34)
== END 2018-02-05 21:15 | disposition home or self-care (01) | DRG 603 ==
LOC: EDBD 13:09 → C.EDC 13:13 → C.MS2W 16:06 → EDBEDREQ 16:09 → ENRESERV 16:41
PROVIDERS: ADMIT Hospitalist; ATTEND Hospitalist
PROC: 02HV33Z Insertion of Infusion Device into Superior Vena Cava, Percutaneous Approach (ICD-10-PCS; principal; 2018-02-05)
DX: L03.115 Cellulitis of right lower limb (principal); M84.68XA Pathological fracture in other disease, other site, initial encounter for fracture; L03.116 Cellulitis of left lower limb; Z87.891 Personal history of nicotine dependence; M96.1 Postlaminectomy syndrome, not elsewhere classified; S72.012S Unspecified intracapsular fracture of left femur, sequela; F14.11 Cocaine abuse, in remission; M54.9 Dorsalgia, unspecified; Z88.2 Allergy status to sulfonamides; L97.519 Non-pressure chronic ulcer of other part of right foot with unspecified severity; L97.529 Non-pressure chronic ulcer of other part of left foot with unspecified severity; E78.5 Hyperlipidemia, unspecified; G62.9 Polyneuropathy, unspecified; I73.9 Peripheral vascular disease, unspecified; R59.9 Enlarged lymph nodes, unspecified; B95.62 Methicillin resistant Staphylococcus aureus infection as the cause of diseases classified elsewhere; B96.5 Pseudomonas (aeruginosa) (mallei) (pseudomallei) as the cause of diseases classified elsewhere; W01.0XXS Fall on same level from slipping, tripping and stumbling without subsequent striking against object, sequela